=== PATIENT | female | born 1980 | race Caucasian/White ===

== ENCOUNTER 2016-04-14 13:01 | Inpatient (IN) | payer OTHER ==
[2016-04-14 13:32] LABS: % IMMATURE GRANULYOCYTES 0.3 % (0.0-1.1); ABSOLUTE IMMATURE GRANULOCYTES 0.03 10^3/uL (0.00-0.10); ADD DIFF? NO; ADD MORPH? NO; ADD SCAN? NO; ATYPICAL LYMPHOCYTE FLAG 0 (0-99); FRAGMENT RBC FLAG 0 (0-99); HEMATOCRIT 44.6 % (38.0-47.0); HEMOGLOBIN 15.6 g/dL (12.6-16.3); LEFT SHIFT FLG 0 (0-99); LIPEMIA HEMOLYSIS FLAG 90 (0-99); MEAN CELL HEMOGLOBIN 33.2 pg (27.9-34.1); MEAN CELL VOLUME 94.9 fL (81.5-99.8); MEAN PLATELET VOLUME 10.8 fL (8.7-11.7); PLATELET CLUMPS FLAG 10 (0-99); PLATELET COUNT 210 10^3/uL (150-400); RED CELL DISTRIBUTION WIDTH 12.5 % (11.5-15.2)
--- NOTE | 2016-04-14 13:43 | EDPHY ---
H & P Stated Complaint: M1 HOLD, DELUSIONAL - Personal History LMP (Females 10-55): 1-7 Days Ago Current Tetanus Diphtheria and Acellular Pertussis (TDAP): Yes Tetanus Vaccine Date: < 10 YEARS - Medical/Surgical History Hx Asthma: No Hx Chronic Respiratory Disease: No Hx Diabetes: No Hx Cardiac Disease: No Hx Renal Disease: No Hx Cirrhosis: No Hx Alcoholism: No Hx HIV/AIDS: No Hx Splenectomy or Spleen Trauma: No Other PMH: migraines - Social History Smoking Status: Former smoker Time Seen by Provider: 04/14/16 13:12 HPI/ROS: Chief complaint: Bipolar and jeanne HPI: 35-year-old woman with a history of bipolar 2 disorder and schizoaffective disorder who is being brought in for evaluation. Patient has been off her medications. She has had [address] [place] [address] in the last year. She is noncompliant with her therapist or her psychiatrist. She is currently pending eviction from her apartment. She gets Invega every 3 weeks and is supposed to be taking Zyprexa 20-30 mg a day and Trileptal 900 mg but has not been taking either Zyprexa or tried up. Patient is of manic and delusional. She believes that she is currently also believes that she is a mounted police officer. Her mother fluid town from dialysis to check on her and found her in this state. Patient is currently not cooperative with examination refusing to take any medications. She does not have any other past medical history. She was diagnosed with bipolar disorder at age 20. Has been in and out of treatments since that time. ROS: 10 point Review of Systems is negative except as noted in the HPI. Past medical history: Bipolar disorder type 2 Schizoaffective disorder Medications: Invega q 3 weeks Zyprexa 20-30 mg a day Trileptal 900 mg a day Allergies: No known drug allergies Physical exam: Gen: Awake, Alert, anxious, pressured speech HEENT: Nose: no rhinorrhea Eyes: PERRLA, EOMI Mouth: Moist mucosa Neck: Supple, no JVD Chest: nontender, lungs clear to auscultation Heart: S1, S2 normal, no murmur Abd: Soft, non-tender, no guarding Back: no CVA tenderness, no midline tenderness Ext: no edema, non-tender Skin: no rash Neuro: CN II-XII intact, Sensation grossly intact, Strength 5/5 in bilateral upper and lower extremities (Catracho Marie) Constitutional: Initial Vital Signs Temperature (C) 36.8 C 04/14/16 13:26 Heart Rate 101 H 04/14/16 13:26 Respiratory Rate 16 04/14/16 13:26 Blood Pressure 108/74 04/14/16 13:26 O2 Sat (%) 94 04/14/16 13:26 O2 Delivery Mode Room Air Allergies/Adverse Reactions: No Known Allergies Allergy (Verified 04/14/16 13:29) Home Medications: Medication Instructions Recorded OLANZapine DISINTEGR [ZyPREXA 20 mg PO HS 12/27/15 ZYDIS (*)] OXcarbazepine [Trileptal 300mg (*)] 900 mg PO HS 12/27/15 Paliperidone Palmitate [Invega 234 mg IM ONCE 12/27/15 Sustenna (*)] Medical Decision Making ED Course/Re-evaluation: Patient has been placed on a mental health hold by her mental health team prior to presentation emergency department. Patient has been medically cleared. Awaiting mental evaluation. 1748 patient has been accepted to [address] Macedo. EMTALA has been completed. 2100 Pt s/o to Dr Rossi pending transfer to . (Catracho Marie) Patient has remained stable in the 2 hours that I have cared for her. (Cj Rossi) Care Turn Over: Dr. Orantes at 11:00 p.m. (Cj Rossi) - Data Points Laboratory Results: Laboratory Results 04/14/16 13:20 04/14/16 13:20 04/14/16 04/14/16 04/14/16 13:20 13:20 13:20 WBC RBC Hgb Hct MCV MCH MCHC RDW Plt Count MPV Neut % (Auto) Lymph % (Auto) [place] % (Auto) Eos % (Auto) Baso % (Auto) Nucleat RBC Rel Count Absolute Neuts (auto) Absolute Lymphs (auto) Absolute Monos (auto) Absolute Eos (auto) Absolute Basos (auto) Absolute Nucleated RBC Immature Gran % Immature Gran # Sodium 136 mEq/L mEq/L (134-144) Potassium 3.9 mEq/L mEq/L (3.5-5.2) Chloride 105 mEq/L mEq/L (97-110) Carbon Dioxide 19 mEq/l L mEq/l (22-31) Anion Gap 12 mEq/L mEq/L (8-16) BUN 9 mg/dL mg/dL (7-23) Creatinine 0.8 mg/dL mg/dL (0.6-1.0) Estimated GFR > 60 Glucose 122 mg/dL H mg/dL (70-100) Calcium 9.5 mg/dL mg/dL (8.5-10.4) Beta HCG, Qual NEGATIVE Salicylates < 1.0 mg/dL L mg/dL (2.0-20.0) Urine Opiates Screen NEGATIVE (NEGATIVE) Acetaminophen < 10 mcg/mL L mcg/mL (10.0-30.0) Urine Barbiturates NEGATIVE (NEGATIVE) Ur Phencyclidine Scrn NEGATIVE (NEGATIVE) Ur Amphetamine Screen NEGATIVE (NEGATIVE) U Benzodiazepines Scrn NEGATIVE (NEGATIVE) Urine Cocaine Screen NEGATIVE (NEGATIVE) U Marijuana (THC) Screen NEGATIVE (NEGATIVE) Ethyl Alcohol < 10 mg/dL mg/dL (0-10) 04/14/16 13:20 WBC 9.91 10^3/uL H 10^3/uL (3.80-9.50) RBC 4.70 10^6/uL 10^6/uL (4.18-5.33) Hgb 15.6 g/dL g/dL (12.6-16.3) Hct 44.6 % % (38.0-47.0) MCV 94.9 fL fL (81.5-99.8) MCH 33.2 pg pg (27.9-34.1) MCHC 35.0 g/dL g/dL (32.4-36.7) RDW 12.5 % % (11.5-15.2) Plt Count 210 10^3/uL 10^3/uL (150-400) MPV 10.8 fL fL (8.7-11.7) Neut % (Auto) 77.0 % H % (39.3-74.2) Lymph % (Auto) 16.8 % % (15.0-45.0) [place] % (Auto) 4.6 % % (4.5-13.0) Eos % (Auto) 0.7 % % (0.6-7.6) Baso % (Auto) 0.6 % % (0.3-1.7) Nucleat RBC Rel Count 0.0 % % (0.0-0.2) Absolute Neuts (auto) 7.63 10^3/uL H 10^3/uL (1.70-6.50) Absolute Lymphs (auto) 1.66 10^3/uL 10^3/uL (1.00-3.00) Absolute Monos (auto) 0.46 10^3/uL 10^3/uL (0.30-0.80) Absolute Eos (auto) 0.07 10^3/uL 10^3/uL (0.03-0.40) Absolute Basos (auto) 0.06 10^3/uL 10^3/uL (0.02-0.10) Absolute Nucleated RBC 0.00 10^3/uL 10^3/uL (0-0.01) Immature Gran % 0.3 % % (0.0-1.1) Immature Gran # 0.03 10^3/uL 10^3/uL (0.00-0.10) Sodium Potassium Chloride Carbon Dioxide Anion Gap BUN Creatinine Estimated GFR Glucose Calcium Beta HCG, Qual Salicylates Urine Opiates Screen Acetaminophen Urine Barbiturates Ur Phencyclidine Scrn Ur Amphetamine Screen U Benzodiazepines Scrn Urine Cocaine Screen U Marijuana (THC) Screen Ethyl Alcohol Medications Given: Discontinued Medications Lorazepam (Ativan Injection) 1 mg IM EDNOW ONE Stop: 04/14/16 14:09 Last Admin: 04/14/16 14:18 Dose: 1 mg Nicotine Polacrilex (Nicorette) 2 mg B EDNOW ONE Stop: 04/14/16 14:06 Last Admin: 04/14/16 14:22 Dose: 2 mg Olanzapine (Zyprexa Im Injection) 10 mg IM EDNOW ONE Stop: 04/14/16 14:06 Last Admin: 04/14/16 14:17 Dose: 10 mg Departure - Departure Disposition: [facility] IP Clinical Impression: Bipolar disorder, Gravely disabled, Schizoaffective disorder, Delusional disorder Condition: Fair Referrals: Patient,NotPresent [Unknown] - As per Instructions
[2016-04-14 13:51] LABS: ANION GAP 12 mEq/L (8-16); CALCIUM 9.5 mg/dL (8.5-10.4); CARBON DIOXIDE 19 mEq/l (22-31); CHLORIDE 105 mEq/L (97-110); CREATININE 0.8 mg/dL (0.6-1.0); ETHANOL SERUM < 10 mg/dL (0-10); GLOMERULAR FILTRATION RATE > 60; GLUCOSE 122 mg/dL (70-100); POTASSIUM 3.9 mEq/L (3.5-5.2); SALICYLATE < 1.0 mg/dL (2.0-20.0); SODIUM 136 mEq/L (134-144)
[2016-04-14] MEDS ORDERED: OLANZapine 10 MG/2 ML VIAL IM ONE (14:05)
[2016-04-14] MEDS ORDERED: NICOTINE POLACRILEX 2 MG GUM B ONE (14:05)
[2016-04-14] MEDS ORDERED: LORazepam 2 MG/ML INJ IM ONE (14:08)
[2016-04-14] MEDS ORDERED: OLANZapine 2.5 MG TAB PO SCH (21:00)
[2016-04-14] MEDS ORDERED: OXcarbazepine 300 MG TAB PO SCH (21:00)
[2016-04-14] MEDS ORDERED: OXcarbazepine 300 MG TAB PO ONE (23:30)
[2016-04-14] MEDS ORDERED: OLANZapine DISINTEGR 10 MG TAB PO ONE (23:30)
[2016-04-15] MEDS ORDERED: ACETAMINOPHEN 325 MG TAB PO PRN (09:23)
[2016-04-15] MEDS ORDERED: MAGNESIUM HYDROXIDE 30 ML UDCUP PO PRN (09:23)
[2016-04-15] MEDS ORDERED: MAG HYDROX/AL HYDROX/SIMETH 30 ML UDCUP PO PRN (09:23)
[2016-04-15] MEDS ORDERED: LORazepam 0.5 MG TAB PO PRN (09:23)
[2016-04-15 10:03] VITALS: RESP 12; TEMP 97.8
[2016-04-15] MEDS ORDERED: PALIPERIDONE PALMITATE 234 MG/1.5 ML SYR IM ONE (10:35)
[2016-04-15] MEDS: NICOTINE POLACRILEX 2 MG GUM B PRN ×2 (11:52→12:45)
--- NOTE | 2016-04-15 12:22 | BAPA ---
DATE OF SERVICE: 04/15/2016 CHIEF COMPLAINT: "My mother is retazy. I have been doing great." HISTORY OF PRESENT ILLNESS: The patient is a 35-year-old single female known to this MD from multiple previous 3 [place] admissions, with a history of schizoaffective disorder, who was brought to the [facility] ED for an evaluation on 04/14/2016 at 1340. The patient has reportedly been off her medications and has been noncompliant with her appointments with her psychiatrist or therapist at [facility] where she gets her psych treatment. She has a visiting nurse who gives pt her Invega sustana injections. She has had [address] [place] [address] in the past year. She has pending eviction from her apartment due to her behavior. She was supposed to get Invega 234 mg every 3 weeks and is supposed to be taking Zyprexa and Trileptal, but has not been taking any, and may have missed her injection. The patient appeared in the ER manic and delusional. She believes she is currently , believes she is a secretary of police, and that she is . Her mother flew into [facility] (she is on dialysis) to check on her and found her decompensated. The patient has had a history of bipolar disorder since age 20. The patient knows this MD, so was cooperative with questions but is a poor historian and is delusional. However, in the ED refused to communicate with a [facility] cardiac monitor. Patient's mother reports she has been off her medications for several weeks and has been increasingly paranoid and fearful. The patient is a [facility] patient. Her M1 hold states, "Patient harassing neighbors and making disruptive noises to the point of eviction, process being initiated, patient driving recklessly, breaking traffic lower airways, endangering people and herself, patient refusing to take her meds and refusing to see her counselor and psychiatrist, the patient's hygiene and nutrition are poor, the patient has been making threatening and offensive calls and texts to family, treatment team and police." The patient's mother states patient is manic and decompensating. The patient has not been sleeping or eating well. Has not slept in a week. Also has a poor diet, consuming lots of sugar and caffeine. Her therapist said she eats out a lot and the healthiest thing she consumes is [employer]. PSYCHIATRIC HISTORY: The patient was hospitalized psych at [facility] from 11/04/2015 to 11/16/2015, and most recently 12/26/2015 to 01/24/2016. The patient has been hospitalized 7 times in [place], [place]. The patient's previous psychiatrist , Dr. James Flores, last year. She has a new psychiatrist, Dr. Goodwin, but has been refusing to keep her appointments. She is scheduled for an Invega injection every 3 weeks, but may have missed her last shot. Previous suicide attempt on November 04, 2015: The patient overdosed on her medication and was in the ICU for 2 days. No history of violence. Supposed to be taking Invega Sustenna 234 mg IM q.3 weeks, Zyprexa 20 mg daily, and Trileptal. According to previous [facility] records, the patient is has frequent delusions, even when she is stable. She also believes she is , is a secretary of police, and has delusions about previous relationships with past connections such as the [facility] who she actually socialized with in the past, and also about having high-profile boyfriends. She also often thinks she is dating or to a photocopying machine operator, FBI agent, etc. PAST MEDICAL HISTORY: None reported. ALLERGIES: None. SUBSTANCE ABUSE: Denies any substance abuse. BAL was 0. U tox was negative. According to [facility] record, the patient does not drink or use drugs. 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 She smokes a pack a day of cigarettes. SOCIAL HISTORY: The patient's parents are . Mother lives in [place]. The patient's father lives in [place], [place]. Sister resides in [place]. Patient grew up in [place], and attended boarding school in [place]. The patient was very intelligent and comes from an affluent family. 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 No physical or sexual abuse growing up. She is single. No children. Lives alone in apartment in [place]. May be evicted. No close friends. The patient has been unable to work for many years. She enjoys tennis, art, and swimming. MENTAL STATUS: Patient is alert and oriented x4. Mood is labile, elated. Affect is broad. Patient denies auditory or visual hallucinations. She is delusional. She states things "are great" She states she is and recently got in [place]. She states the reason she is here is all because of her "mother is crazy". Speech is pressured and loud. Thoughts are illogical with grandiose delusions . Sleep, appetite have been poor. Energy level is high. Positive symptoms of jeanne. Patient denies suicidal or homicidal ideation. Insight and judgment are poor. IMPRESSION: Schizoaffective disorder, acute decompensation, secondary to noncompliance with medications. [place] V on admission is 20. PLAN: Will order Invega Sustenna 234 mg to give 1 time after we check to see when her last dose was actually administered. Patient agrees to this. Ativan p.r.n., Zyprexa p.r.n. 20 mg q.h.s., Trileptal 900 mg q.h.s. The patient is currently on an M1 and will require a cert when M1 expires, as she has no insight. The patient is appropriate for psychiatric hospitalization at this time. The patient will see the direct care counselor and the hospitalist today. /[id number]/MODL MTDD
--- NOTE | 2016-04-15 14:27 | BCON ---
INTERNAL MEDICINE CONSULTATION. DATE OF CONSULTATION: 04/15/2016 REASON FOR REFERRAL: Medical clearance for inpatient behavioral health stay. HISTORY OF PRESENT ILLNESS: The patient came to the emergency department with manic behavior, brought in for evaluation. She had been noncompliant with her psychiatric medications, and had not followed up with her therapist or her psychiatrist. She was evaluated by the mental health team and admitted for further psychiatric care. She currently reports "no problems", and reports that she has her own doctor and does not need to see this examiner today. PAST MEDICAL HISTORY: 1. Psychiatric issues with diagnoses in the chart of schizoaffective disorder and bipolar disorder. 2. History of suicide attempt with overdose on psychiatric medications. 3. Migraines. PAST SURGICAL HISTORY: Unobtainable. MEDICATIONS: She was prescribed: 1. Paliperidone injection, 234 mg IM every 3 weeks. 2. Oxcarbazepine 900 mg p.o. at bedtime. 3. Olanzapine 20 mg p.o. at bedtime. ALLERGIES: There are no known drug allergies. SOCIAL HISTORY: She lives alone in an apartment. She has been a [employer] client. 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 She smokes 1 pack of cigarettes a day. FAMILY HISTORY: Noncontributory. REVIEW OF SYSTEMS: Unobtainable. PHYSICAL EXAM: Physical exam is limited due to noncooperation. VITAL SIGNS: This morning, blood pressure was 110/58, heart rate was 94, respiratory rate was 12, oxygen saturation was 92% on room air, temperature was 36.6 degrees. Weight was 68.5 kg for a body mass index of 21.1. GENERAL: This is a well- nourished, well-developed woman who appears her chronologic age, in a green suicide smock wearing a knit cap pulled over her head, rocking in a rocking chair and in no acute distress. HEENT: Appears atraumatic and normocephalic. Extraocular movements, to the extent they can be examined, are intact. Dentition appears to be in good condition. NECK: Supple. CARDIOVASCULAR: Exam could not be accomplished. PULMONARY: She is not tachypneic and is not using accessory muscles of respiration, and is not coughing. ABDOMEN: Abdominal exam could not be accomplished. EXTREMITIES: There appears to be no cyanosis or clubbing. NEUROLOGIC: She is alert, she moves all extremities, and further exam could not be accomplished. LABORATORY DATA: Laboratory studies drawn in the emergency department: CBC revealed an elevated white blood cell count at 9.9, with a predominance of neutrophils at 7.63, but no left shift. CBC was otherwise within normal limits. Serum chemistry reveals a slightly low CO2 at 19, an elevated glucose at 122, but this was likely not fasting, and otherwise renal function and electrolytes were within normal limits. Beta HCG was negative for . Toxicology screen, the serum was negative for salicylates, acetaminophen or ethyl alcohol, and the urine was negative for any substances of abuse. ASSESSMENT/RECOMMENDATIONS: 1. Mental health issues. Pending further evaluation and management per Psychiatry and the mental health system team. 2. Medical noncompliance, unclear what can be done to encourage her to remain on her psychiatric medications. 3. Tobacco dependence syndrome. I see no medical contraindications to the patient's continued stay on the inpatient behavioral health unit, or to any psychiatric medications or procedures. Thank you very much for including me in the care of this patient, and please do not hesitate to contact me or the hospitalist service should there be need for further medical evaluation. /[id number]/MODL MTDD
[2016-04-15] MEDS: OXcarbazepine 300 MG TAB PO SCH (21:06)
[2016-04-15] MEDS: OLANZapine DISINTEGR 10 MG TAB PO SCH (21:06)
[2016-04-16] MEDS: NICOTINE POLACRILEX 2 MG GUM B PRN ×5 (07:48→18:01)
[2016-04-16] MEDS: OXcarbazepine 300 MG TAB PO SCH (18:59)
[2016-04-16] MEDS: OLANZapine DISINTEGR 10 MG TAB PO SCH (18:59)
[2016-04-17] MEDS: NICOTINE POLACRILEX 2 MG GUM B PRN ×3 (07:00→16:57)
--- NOTE | 2016-04-17 13:39 | BAPA ---
DATE OF SERVICE: 04/17/2016 CHIEF COMPLAINT: "I'm too busy right now. I do not want to talk to you." HISTORY OF PRESENT ILLNESS: Patient is a 35-year-old, female with a history of schizoaffe ctive disorder bipolar type, who is well known to us from previous admissions. She was here from to 01/24/16 under my care due to medication noncompliance and decompensation with manic and p sychotic symptoms. During that hospitalization we had a very difficult time stabilizing her, but ul timately we were able to discharge her on a combination of Trileptal, Zyprexa and Invega Sustenna. She was to follow up with Dr. Trae Esparza as an outpatient, which she did eventually on at least 1 occasion. She then refused to come back, and at some point, changed to seeing Dr. Sal Goodwin. She was continued on at least the Zyprexa and Invega, and is unclear when she had her last Invega Leung stenna shot. One report was she had it on the 04 of March and then missed her March shot, an d another report was that she did indeed receive the shot in March on the . The patient is un willing to give me any history as I have attempted to interview her at least 10 times in the past 2 days. She states each time that she is too busy to talk or that she does not want to talk or that s he is too tired to talk. This is a familiar pattern from the past as it takes several days before s he will typically give me any useful information. Other collateral information indicates that she w as brought to the hospital due to recurrent manic and psychotic behaviors. She apparently had been disturbing her neighbors and driving recklessly. She was, again, not attending to her nutrition or hygiene needs. Also, as in the past, she began making threatening and offensive calls and texts to her family and her treatment team. She made no threats of suicide, though has in the past. She was brought to the emergency department where she was evaluated by ER and [facility] staff, placed on an M1 ho ld and admitted for further evaluation. PAST PSYCHIATRIC HISTORY: Significant for numerous previous psychiatric hospitalizations. As mentkuldip rodriguezd above, she was at this facility from 12/26/15 to 01/24/16. Is currently seeing Dr. Jesus gray for medication management and Ellis for community support and therapy. ALLERGIES: No known medical allergies. CURRENT MEDICATIONS: Zyprexa 20 mg h.s., Invega Sustenna 234 mg every 4 weeks, Trileptal 900 mg h.s . PAST MEDICAL HISTORY: Noncontributory. SOCIAL HISTORY: Patient is originally from the [facility]. She has lived in [place] for severa l years. Her sister also lives in [place] and has been a support for her, though they have a confli ctual relationship due to patient's recurrent severe illness. Patient's mother lives in [place] and is her primary support. She has a similar complex relationship with her mother when she becomes mor e delusional and accuses her family of acting against her and being jealous of her. She receives di sability income due to her mental illness. FAMILY HISTORY: Unremarkable. ADMITTING LABORATORY: CBC shows a white count up at 9.91 with neutrophil percentage of 77, which is also elevated. Serum chemistries showed no significant abnormalities. Beta hCG is negative. A ur ine drug screen is negative for all substances. MENTAL STATUS EXAMINATION: Reveals a disheveled female, sitting in a rocking chair in the day room. She is talking in a pressured and loud manner to no one in particular and giving a runni ng commentary about activities on the unit and the television. She immediately sees me and will squ eal or yell and wave at me, but then immediately begins to refuse to talk to me. She is smiling and pleasant and is not irritable or hostile, but refuses to participate in a clinical interview or nir n a conversation. Her affect is elevated, labile. Her mood is described as "great." Thought proce ss is tangential. Her thought content reveals paranoid and grandiose delusions, as are familiar fro m the past about being a navy senior officer and having various husbands. I am unable to test her orient ation, although she is alert and interactive. She does not mention any thoughts of suicide, homicid e or violence to me, though she refuses to answer this or any other questions. Her insight and judg ment are very poor. IMPRESSION: Schizoaffective disorder, chronic, with acute exacerbation, bipolar type; chronic illne ss, family conflicts, medication noncompliance, recurrent illness, recurrent hospitalization, possib le housing problems. The patient is a 35-year-old, female with severe bipolar type schizoaffective disorder. S he has been chronically noncompliant. This recurrence of hospitalization now is exactly scripted fr om her last several. It is very difficult to imagine higher level of community support then she is having currently, and she simply does poorly in the outpatient setting. We will attempt to re-stabi lize her on her medications as they have been reasonably effective in the past, though this typicall y takes several weeks. Also coordinate with Dr. Goodwin and Ellis, and hope to see an ongoing effo rt to create a reasonable and safe outpatient plan. ESTIMATED LENGTH OF STAY: 14 days. /[id number]/MODL
[2016-04-17] MEDS: OLANZapine DISINTEGR 10 MG TAB PO SCH (20:01)
[2016-04-17] MEDS: OXcarbazepine 300 MG TAB PO SCH (20:40)
[2016-04-18] MEDS: NICOTINE POLACRILEX 2 MG GUM B PRN ×4 (06:27→17:13)
--- NOTE | 2016-04-18 22:22 | SOAPPROG ---
SOAP Progress Note Assessment/Plan: Assessment: Plan: Subjective: P Pt seen, discussed with staff. Continues to refuse meds. I discussed with her very directly that she needs to take all of her prescribed medications. She agrees to take the Zyprexa and Trileptal. I left message for pt's mother re: meds, treatment plan, etc. Objective: Vital Signs Temp Pulse Resp BP Pulse Ox 36.6 C 94 12 110/58 L 92 04/15/16 10:02 04/15/16 10:02 04/15/16 10:02 04/15/16 10:02 04/15/16 10:02 MSE: Agitated, hyperverbal. Affect is expansive. Mood is "great." TP tangential. TC reveals paranoid, grandiose delusions. Denies SI. - Time Spent With Patient Time Spent With Patient: 25" - Pending Discharge Pending Discharge Within 24 Hours: No Pending Discharge Within 48 Hours: No ICD10 Worksheet Patient Problems: Problems Problem Status Onset Bipolar disorder Acute Delusional disorder Acute Gravely disabled Acute Schizoaffective disorder Acute Acute psychosis Acute Altered mental status Acute Overdose Acute
[2016-04-18] MEDS: OLANZapine DISINTEGR 10 MG TAB PO SCH (22:23)
[2016-04-18] MEDS: OXcarbazepine 300 MG TAB PO SCH (22:24)
[2016-04-19] MEDS: NICOTINE POLACRILEX 2 MG GUM B PRN ×5 (06:29→15:47)
[2016-04-19] MEDS: IBUPROFEN 600 MG TAB PO PRN (13:32)
[2016-04-19] MEDS: OXcarbazepine 300 MG TAB PO SCH (20:53)
[2016-04-19] MEDS: OLANZapine DISINTEGR 10 MG TAB PO SCH (20:54)
--- NOTE | 2016-04-19 22:58 | SOAPPROG ---
SOAP Progress Note Assessment/Plan: Assessment: Plan: 04/19/16 22:58 Remains manic and psychotic. Need COM if she is to stabilize.. Subjective: Pt seen, discussed with staff. Reports feeling "great." States her psychiatrist and the governor of [place] don't want her to take any pills "just the injectable." Agitated and pacing, unable to interact appropriately with others. Talking to unseen persons in running conversation. ADL's and grooming remain poor. Objective: Vital Signs Temp Pulse Resp BP Pulse Ox 36.6 C 94 12 110/58 L 92 04/15/16 10:02 04/15/16 10:02 04/15/16 10:02 04/15/16 10:02 04/15/16 10:02 MSE: Agitated, pressured. Affect is elevated. Mood is "great." TP tangential , disorganized. TC reveals grandiose and paranoid delusions. - Time Spent With Patient Time Spent With Patient: 15" - Pending Discharge Pending Discharge Within 24 Hours: No Pending Discharge Within 48 Hours: No ICD10 Worksheet Patient Problems: Problems Problem Status Onset Bipolar disorder Acute Delusional disorder Acute Gravely disabled Acute Schizoaffective disorder Acute Acute psychosis Acute Altered mental status Acute Overdose Acute
[2016-04-20] MEDS: NICOTINE POLACRILEX 2 MG GUM B PRN ×8 (06:16→20:40)
[2016-04-20] MEDS ORDERED: PALIPERIDONE PALMITATE 234 MG/1.5 ML SYR IM ONE (13:50)
--- NOTE | 2016-04-20 18:58 | SOAPPROG ---
SOAP Progress Note Assessment/Plan: Assessment: Plan: 04/19/16 22:58 Remains manic and psychotic. Need COM if she is to stabilize.. 04/20/16 18:57 REmains manic. Needs additional PO meds. Will petition court. Subjective: Pt seen, discussed with staff. Remains elevated, intrusive, loud, delusional. Refuses PO meds "because my psychiatrist in [facility] told me they frederic bad for me. " Requests Invega Sustenna. Objective: Vital Signs Temp Pulse Resp BP Pulse Ox 36.6 C 94 12 110/58 L 92 04/15/16 10:02 04/15/16 10:02 04/15/16 10:02 04/15/16 10:02 04/15/16 10:02 MSE: Moderately agitated, uncoop. AFfect is elevated. Mood is "great." TP tangential. TC reveals ongoing erotomanic, grandiose and paranoid delusions. I/ J are very poor. - Time Spent With Patient Time Spent With Patient: 15" - Pending Discharge Pending Discharge Within 24 Hours: No Pending Discharge Within 48 Hours: No ICD10 Worksheet Patient Problems: Problems Problem Status Onset Bipolar disorder Acute Delusional disorder Acute Gravely disabled Acute Schizoaffective disorder Acute Acute psychosis Acute Altered mental status Acute Overdose Acute
[2016-04-20] MEDS: OLANZapine DISINTEGR 10 MG TAB PO SCH (20:42)
[2016-04-20] MEDS: OXcarbazepine 300 MG TAB PO SCH (20:43)
[2016-04-21] MEDS: NICOTINE POLACRILEX 2 MG GUM B PRN ×3 (07:55→12:31)
[2016-04-21] MEDS: IBUPROFEN 600 MG TAB PO PRN (15:23)
--- NOTE | 2016-04-21 17:35 | SOAPPROG ---
SOAP Progress Note Assessment/Plan: Assessment: Plan: 04/19/16 22:58 Remains manic and psychotic. Need COM if she is to stabilize.. 04/20/16 18:57 REmains manic. Needs additional PO meds. Will petition court. 04/21/16 17:34 Improving but history indicates she will not improve adequate to provide for safe d/c without PO meds. Will [facility], petition for involuntary meds. Subjective: Pt seen, discussed with staff. Reports feeling "just great." Remains elevated , impulsive, intrusive with continued inapprop. comments to staff and fellow patients. She continues to refuse PO meds but did take the Sustenna. Objective: Vital Signs Temp Pulse Resp BP Pulse Ox 36.6 C 94 12 110/58 L 92 04/15/16 10:02 04/15/16 10:02 04/15/16 10:02 04/15/16 10:02 04/15/16 10:02 - Time Spent With Patient Time Spent With Patient: 15" - Pending Discharge Pending Discharge Within 24 Hours: No Pending Discharge Within 48 Hours: No ICD10 Worksheet Patient Problems: Problems Problem Status Onset Bipolar disorder Acute Delusional disorder Acute Gravely disabled Acute Schizoaffective disorder Acute Acute psychosis Acute Altered mental status Acute Overdose Acute
[2016-04-21] MEDS: OLANZapine DISINTEGR 10 MG TAB PO SCH (20:22)
[2016-04-21] MEDS: OXcarbazepine 300 MG TAB PO SCH (20:22)
[2016-04-22] MEDS: NICOTINE POLACRILEX 2 MG GUM B PRN ×5 (07:13→13:49)
[2016-04-22] MEDS: OLANZapine DISINTEGR 10 MG TAB PO SCH (21:34)
[2016-04-22] MEDS: OXcarbazepine 300 MG TAB PO SCH (21:35)
--- NOTE | 2016-04-23 08:00 | SOAPPROG ---
SOAP Progress Note Assessment/Plan: Assessment: Plan: 04/19/16 22:58 Remains manic and psychotic. Need COM if she is to stabilize.. 04/20/16 18:57 REmains manic. Needs additional PO meds. Will petition court. 04/21/16 17:34 Improving but history indicates she will not improve adequate to provide for safe d/c without PO meds. Will [facility], petition for involuntary meds. 04/23/16 07:59 Remains elevated, though coop. Will [facility]. Subjective: Pt seen, discussed with staff. She reports being happy about stay in the hospital and wants to stay for "at least a month or two." States she wants to take meds and be compliant. Continues to refuse HS PO meds, however. She states she will think about it. Remains elevated, intrusive, accelerated, delusional, but no behavioral issues. Objective: Vital Signs Temp Pulse Resp BP Pulse Ox 36.6 C 94 12 110/58 L 92 04/15/16 10:02 04/15/16 10:02 04/15/16 10:02 04/15/16 10:02 04/15/16 10:02 MSE: Moderately activated, coop. Affect is elevated. Mood is "great." TP tangential. TC reveals grandiose, erotomanic and paranoid delusions. - Time Spent With Patient Time Spent With Patient: 25" - Pending Discharge Pending Discharge Within 24 Hours: No Pending Discharge Within 48 Hours: No ICD10 Worksheet Patient Problems: Problems Problem Status Onset Bipolar disorder Acute Delusional disorder Acute Gravely disabled Acute Schizoaffective disorder Acute Acute psychosis Acute Altered mental status Acute Overdose Acute
[2016-04-23] MEDS: NICOTINE POLACRILEX 2 MG GUM B PRN ×3 (15:14→18:00)
--- NOTE | 2016-04-23 16:02 | SOAPPROG ---
SOAP Progress Note Assessment/Plan: Assessment: Plan: 04/19/16 22:58 Remains manic and psychotic. Need COM if she is to stabilize.. 04/20/16 18:57 REmains manic. Needs additional PO meds. Will petition court. 04/21/16 17:34 Improving but history indicates she will not improve adequate to provide for safe d/c without PO meds. Will [facility], petition for involuntary meds. 04/23/16 07:59 Remains elevated, though coop. Will [facility]. 04/23/16 16:02 More irritable today. She continues to resist PO meds but is happy to accept IM. Will discuss with Dr. Goodwin the utility in seeking an order for PO meds as she is correct that we cannot give them to her against her will. Although Zyprexa is available in a long-acting injectable, I will not give it with Sustenna due to safety concerns. Subjective: Pt seen, discussed with staff. Friendly at first until I discussed the need for her to take PO meds. She remains adamantly against this. She states, " Even if you get a court order, you can't make me take the pills." Remains intermittently agitated, usually in regards to delusional themes. Objective: Vital Signs Temp Pulse Resp BP Pulse Ox 36.6 C 94 12 110/58 L 92 04/15/16 10:02 04/15/16 10:02 04/15/16 10:02 04/15/16 10:02 04/15/16 10:02 MSE: Generally calm, coop. Affect is expansive. Mood is "good." TP linear, though frequently diverts to delusional systems. TC reveals ongoing paranoid, grandiose and erotomanic delusions. - Time Spent With Patient Time Spent With Patient: 15" - Pending Discharge Pending Discharge Within 24 Hours: No Pending Discharge Within 48 Hours: No ICD10 Worksheet Patient Problems: Problems Problem Status Onset Bipolar disorder Acute Delusional disorder Acute Gravely disabled Acute Schizoaffective disorder Acute Acute psychosis Acute Altered mental status Acute Overdose Acute
[2016-04-23] MEDS: OLANZapine DISINTEGR 10 MG TAB PO SCH (21:10)
[2016-04-23] MEDS: OXcarbazepine 300 MG TAB PO SCH (21:10)
[2016-04-24] MEDS: NICOTINE POLACRILEX 2 MG GUM B PRN ×10 (09:16→18:27)
[2016-04-24] MEDS: OXcarbazepine 300 MG TAB PO SCH (21:02)
[2016-04-24] MEDS: OLANZapine DISINTEGR 10 MG TAB PO SCH (21:02)
--- NOTE | 2016-04-24 22:29 | SOAPPROG ---
SOAP Progress Note Assessment/Plan: Assessment: Plan: 04/19/16 22:58 Remains manic and psychotic. Need COM if she is to stabilize.. 04/20/16 18:57 REmains manic. Needs additional PO meds. Will petition court. 04/21/16 17:34 Improving but history indicates she will not improve adequate to provide for safe d/c without PO meds. Will [facility], petition for involuntary meds. 04/23/16 07:59 Remains elevated, though coop. Will [facility]. 04/23/16 16:02 More irritable today. She continues to resist PO meds but is happy to accept IM. Will discuss with Dr. Goodwin the utility in seeking an order for PO meds as she is correct that we cannot give them to her against her will. Although Zyprexa is available in a long-acting injectable, I will not give it with Sustenna due to safety concerns. 04/24/16 22:30 CCM. Subjective: Pt seen, discussed with staff. Reports feeling "really good." Continues to act upon delusuonal systems/beliefs. She is in reasonable behavioral control. Objective: Vital Signs Temp Pulse Resp BP Pulse Ox 36.6 C 94 12 110/58 L 92 04/15/16 10:02 04/15/16 10:02 04/15/16 10:02 04/15/16 10:02 04/15/16 10:02 MSE: Calm, coop. Affect is expansive. Mood is "good." TP tangential at times , TC reveals familiar paranoid, grandiose and erotomanic delusions. - Time Spent With Patient Time Spent With Patient: 15" ICD10 Worksheet Patient Problems: Problems Problem Status Onset Bipolar disorder Acute Delusional disorder Acute Gravely disabled Acute Schizoaffective disorder Acute Acute psychosis Acute Altered mental status Acute Overdose Acute
[2016-04-25] MEDS: IBUPROFEN 600 MG TAB PO PRN (09:49)
[2016-04-25] MEDS: NICOTINE POLACRILEX 2 MG GUM B PRN ×4 (09:49→14:05)
[2016-04-25] MEDS: OLANZapine DISINTEGR 10 MG TAB PO SCH (20:41)
[2016-04-25] MEDS: OXcarbazepine 300 MG TAB PO SCH (20:41)
--- NOTE | 2016-04-25 23:19 | SOAPPROG ---
SOAP Progress Note Assessment/Plan: Assessment: 35yo CF admitted again in manic state with delusions in context of med noncompliance 04/25/16 16:17 per staff, slept 10hr. 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 Also delusional about just getting , and loose assoc noted with her feeling the "elopement" risk sign on door relates to her marriage. Loud in milieu, manic, with delusions. "I'm not talking to you" and refused interview. casually dressed, nml rate speech, nml to loud vol; "I'm fine" mood, somewhat labile affect but more controlled than in past. nml psychom activity, no reported SI per staff. did not appear responding to int stim. Plan: continue IM meds. refuses any PO med options Objective: Vital Signs Temp Pulse Resp BP Pulse Ox 36.6 C 94 12 110/58 L 92 04/15/16 10:02 04/15/16 10:02 04/15/16 10:02 04/15/16 10:02 04/15/16 10:02 - Time Spent With Patient Time Spent With Patient: <10min - Pending Discharge Pending Discharge Within 24 Hours: No Pending Discharge Within 48 Hours: No ICD10 Worksheet Patient Problems: Problems Problem Status Onset Bipolar disorder Acute Delusional disorder Acute Gravely disabled Acute Schizoaffective disorder Acute Acute psychosis Acute Altered mental status Acute Overdose Acute
[2016-04-26] MEDS: NICOTINE POLACRILEX 2 MG GUM B PRN ×4 (09:36→14:00)
[2016-04-26] MEDS: OXcarbazepine 300 MG TAB PO SCH (19:45)
[2016-04-26] MEDS: OLANZapine DISINTEGR 10 MG TAB PO SCH (19:45)
--- NOTE | 2016-04-26 22:51 | SOAPPROG ---
SOAP Progress Note Assessment/Plan: Assessment: 35yo CF admitted again in manic state with delusions in context of med noncompliance 04/25/16 16:17 per staff, slept 10hr. 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 Also delusional about just getting , and loose assoc noted with her feeling the "elopement" risk sign on door relates to her marriage. Loud in milieu, manic, with delusions. "I'm not talking to you" and refused interview. casually dressed, nml rate speech, nml to loud vol; "I'm fine" mood, somewhat labile affect but more controlled than in past. nml psychom activity, no reported SI per staff. did not appear responding to int stim. Plan: continue IM meds. refuses any PO med options 04/26/16 13:11 slept 9.5hr. 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 "Can I stay here for 6-8wks" b/c was evicted and this will be time needed to get a new place ready, "I have good insurance". MSE: cooperative, redirectible, nml psychom activity, articulate, talkative but not pressured. mood "fine," affect hypomanic, thoughts delusional, no SI/HI and did not appear responding to any int stim. i/j impaired. cognition conversationally intact PLAN: cont IM meds. refuses po meds of zyprexa and trileptal received Invega Sustenna 234mg IM on 04/20 Objective: Vital Signs Temp Pulse Resp BP Pulse Ox 36.6 C 94 12 110/58 L 92 04/15/16 10:02 04/15/16 10:02 04/15/16 10:02 04/15/16 10:02 04/15/16 10:02 Medications Generic Name Dose Route Start Last Admin Trade Name Freq PRN Reason Stop Dose Admin Lorazepam 0.5 - 1 mg 04/15/16 09:23 Ativan PO 10/12/16 09:22 Q6HRS PRN Anxiety, Able to Take PO Oxcarbazepine 900 mg 04/15/16 21:00 04/26/16 19:45 Trileptal PO 10/12/16 20:59 Not Given HS ANSON Olanzapine 20 mg 04/15/16 21:00 04/26/16 19:45 Zyprexa Zydis PO 10/12/16 20:59 Not Given HS ANSON Olanzapine 10 mg 04/15/16 09:23 Zyprexa Zydis PO 10/12/16 09:22 Q4H PRN Agitation, Psychosis - Pending Discharge Pending Discharge Within 24 Hours: No Pending Discharge Within 48 Hours: No ICD10 Worksheet Patient Problems: Problems Problem Status Onset Bipolar disorder Acute Delusional disorder Acute Gravely disabled Acute Schizoaffective disorder Acute Acute psychosis Acute Altered mental status Acute Overdose Acute
[2016-04-27] MEDS: NICOTINE POLACRILEX 2 MG GUM B PRN ×4 (07:55→17:20)
[2016-04-27] MEDS: OLANZapine DISINTEGR 10 MG TAB PO SCH (21:20)
[2016-04-27] MEDS: OXcarbazepine 300 MG TAB PO SCH (21:20)
--- NOTE | 2016-04-27 23:54 | SOAPPROG ---
SOAP Progress Note Assessment/Plan: Assessment: 35yo CF admitted again in manic state with delusions in context of med noncompliance 04/25/16 16:17 per staff, slept 10hr. 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 Also delusional about just getting , and loose assoc noted with her feeling the "elopement" risk sign on door relates to her marriage. Loud in milieu, manic, with delusions. "I'm not talking to you" and refused interview. casually dressed, nml rate speech, nml to loud vol; "I'm fine" mood, somewhat labile affect but more controlled than in past. nml psychom activity, no reported SI per staff. did not appear responding to int stim. Plan: continue IM meds. refuses any PO med options 04/26/16 13:11 slept 9.5hr. 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 "Can I stay here for 6-8wks" b/c was evicted and this will be time needed to get a new place ready, "I have good insurance". MSE: cooperative, redirectible, nml psychom activity, articulate, talkative but not pressured. mood "fine," affect hypomanic, thoughts delusional, no SI/HI and did not appear responding to any int stim. i/j impaired. cognition conversationally intact PLAN: cont IM meds. refuses po meds of zyprexa and trileptal received Invega Sustenna 234mg IM on 04/2004/27/16 12:40 slept 11hr has plan now to move to [place] on june 24 with her grandfather the "Fed [employer]" no other complaints or requests still wants no po meds but likes Invega. asks if 234mg is the highest dose. regular nicorette gum use. following unit rules well and is redirectable more easily. MSE: cooperative, good eye contact, nml speech rate/vol, mood "good" affect full , tp linear but +delusions, no si/ah PLAN: cont current meds. will only take IM last Invega Sustenna 04/20, taking q3 wk she reports considering [facility] after d/c Objective: Vital Signs Temp Pulse Resp BP Pulse Ox 36.6 C 94 12 110/58 L 92 04/15/16 10:02 04/15/16 10:02 04/15/16 10:02 04/15/16 10:02 04/15/16 10:02 - Time Spent With Patient Time Spent With Patient: 15min - Pending Discharge Pending Discharge Within 24 Hours: No Pending Discharge Within 48 Hours: No ICD10 Worksheet Patient Problems: Problems Problem Status Onset Bipolar disorder Acute Delusional disorder Acute Gravely disabled Acute Schizoaffective disorder Acute Acute psychosis Acute Altered mental status Acute Overdose Acute
[2016-04-28] MEDS: NICOTINE POLACRILEX 2 MG GUM B PRN ×6 (09:28→17:54)
--- NOTE | 2016-04-28 17:48 | SOAPPROG ---
SOAP Progress Note Assessment/Plan: Assessment: Plan: 04/19/16 22:58 Remains manic and psychotic. Need COM if she is to stabilize.. 04/20/16 18:57 REmains manic. Needs additional PO meds. Will petition court. 04/21/16 17:34 Improving but history indicates she will not improve adequate to provide for safe d/c without PO meds. Will [facility], petition for involuntary meds. 04/23/16 07:59 Remains elevated, though coop. Will [facility]. 04/23/16 16:02 More irritable today. She continues to resist PO meds but is happy to accept IM. Will discuss with Dr. Goodwin the utility in seeking an order for PO meds as she is correct that we cannot give them to her against her will. Although Zyprexa is available in a long-acting injectable, I will not give it with Sustenna due to safety concerns. 04/24/16 22:30 CCM. 04/28/16 17:48 Pt remains psychotic. Sleeping well, less irritable, less pressured. Her current symptomology is consistent with the thought disorder component of her illness. Will [facility]. Continue d/c planning. Will put our support behind [facility]. Subjective: Pt seen, discussed with staff, chart reviewed, case discussed with Dr. Macedo. She remains erratic, quite delusional today. She states she is getting to a police surgeon in June and that there will be 500,000 people at her wedding. She will get a pink convertible Volkswagen next week. Mother called and informed CC that she has gotten rid of 's apartment and car. Objective: Vital Signs Temp Pulse Resp BP Pulse Ox 36.6 C 94 12 110/58 L 92 04/15/16 10:02 04/15/16 10:02 04/15/16 10:02 04/15/16 10:02 04/15/16 10:02 MSE: Moderately agitated, coop. Affect is slightly elevated, generally stable. Mood is "great." TP tangential. TC reveals paranoid, grandiose and erotomanic delusions. Denies SI. - Time Spent With Patient Time Spent With Patient: 25" - Pending Discharge Pending Discharge Within 24 Hours: No Pending Discharge Within 48 Hours: No ICD10 Worksheet Patient Problems: Problems Problem Status Onset Bipolar disorder Acute Delusional disorder Acute Gravely disabled Acute Schizoaffective disorder Acute Acute psychosis Acute Altered mental status Acute Overdose Acute
[2016-04-28] MEDS: OXcarbazepine 300 MG TAB PO SCH (21:23)
[2016-04-28] MEDS: OLANZapine DISINTEGR 10 MG TAB PO SCH (21:23)
[2016-04-29] MEDS: NICOTINE POLACRILEX 2 MG GUM B PRN ×6 (09:00→16:37)
--- NOTE | 2016-04-29 18:11 | SOAPPROG ---
SOAP Progress Note Assessment/Plan: Assessment: Plan: 04/19/16 22:58 Remains manic and psychotic. Need COM if she is to stabilize.. 04/20/16 18:57 REmains manic. Needs additional PO meds. Will petition court. 04/21/16 17:34 Improving but history indicates she will not improve adequate to provide for safe d/c without PO meds. Will [facility], petition for involuntary meds. 04/23/16 07:59 Remains elevated, though coop. Will [facility]. 04/23/16 16:02 More irritable today. She continues to resist PO meds but is happy to accept IM. Will discuss with Dr. Goodwin the utility in seeking an order for PO meds as she is correct that we cannot give them to her against her will. Although Zyprexa is available in a long-acting injectable, I will not give it with Sustenna due to safety concerns. 04/24/16 22:30 CCM. 04/28/16 17:48 Pt remains psychotic. Sleeping well, less irritable, less pressured. Her current symptomology is consistent with the thought disorder component of her illness. Will [facility]. Continue d/c planning. Will put our support behind [facility]. 04/29/16 18:11 No interval change. [facility]CM. Subjective: Pt seen, discussed with staff. Remains pleasant and upbeat. Pleasantly delusional regarding husbands and BF's, weddings. Continues to refuse PO meds. Objective: Vital Signs Temp Pulse Resp BP Pulse Ox 36.6 C 94 12 110/58 L 92 04/15/16 10:02 04/15/16 10:02 04/15/16 10:02 04/15/16 10:02 04/15/16 10:02 MSE: Calm, coop. Affect is elevated. Mood is "great." TP tangential. TC reveals familiar delusional systems. No SI. - Time Spent With Patient Time Spent With Patient: 15" - Pending Discharge Pending Discharge Within 24 Hours: No Pending Discharge Within 48 Hours: No ICD10 Worksheet Patient Problems: Problems Problem Status Onset Bipolar disorder Acute Delusional disorder Acute Gravely disabled Acute Schizoaffective disorder Acute Acute psychosis Acute Altered mental status Acute Overdose Acute
[2016-04-29] MEDS: OLANZapine DISINTEGR 10 MG TAB PO SCH (23:09)
[2016-04-29] MEDS: OXcarbazepine 300 MG TAB PO SCH (23:10)
[2016-04-30] MEDS: NICOTINE POLACRILEX 2 MG GUM B PRN ×7 (08:56→17:59)
--- NOTE | 2016-04-30 15:57 | SOAPPROG ---
SOAP Progress Note Assessment/Plan: Assessment: Plan: 04/19/16 22:58 Remains manic and psychotic. Need COM if she is to stabilize.. 04/20/16 18:57 REmains manic. Needs additional PO meds. Will petition court. 04/21/16 17:34 Improving but history indicates she will not improve adequate to provide for safe d/c without PO meds. Will [facility], petition for involuntary meds. 04/23/16 07:59 Remains elevated, though coop. Will [facility]. 04/23/16 16:02 More irritable today. She continues to resist PO meds but is happy to accept IM. Will discuss with Dr. Goodwin the utility in seeking an order for PO meds as she is correct that we cannot give them to her against her will. Although Zyprexa is available in a long-acting injectable, I will not give it with Sustenna due to safety concerns. 04/24/16 22:30 CCM. 04/28/16 17:48 Pt remains psychotic. Sleeping well, less irritable, less pressured. Her current symptomology is consistent with the thought disorder component of her illness. Will [facility]. Continue d/c planning. Will put our support behind [facility]. 04/29/16 18:11 No interval change. [facility]. 04/30/16 15:56 Is approaching baseline. REmains delusional and likely unable to care for herself due to ongoing psychosis. Need d/c plan. Subjective: Pt seen, discussed with staff. Insists she is going home next Wednesday when her "pretend grandfather Deon" comes to pick her up. Remains pleasantly delusional. No aggression. Objective: Vital Signs Temp Pulse Resp BP Pulse Ox 36.6 C 94 12 110/58 L 92 04/15/16 10:02 04/15/16 10:02 04/15/16 10:02 04/15/16 10:02 04/15/16 10:02 MSE: Moderately activated, coop. Affect is elevated. Mood is "great." TP tangential. TC reveals grandiose, paranoid and erotomanic delusions. - Time Spent With Patient Time Spent With Patient: 15" - Pending Discharge Pending Discharge Within 24 Hours: No Pending Discharge Within 48 Hours: No ICD10 Worksheet Patient Problems: Problems Problem Status Onset Bipolar disorder Acute Delusional disorder Acute Gravely disabled Acute Schizoaffective disorder Acute Acute psychosis Acute Altered mental status Acute Overdose Acute
[2016-04-30] MEDS: OXcarbazepine 300 MG TAB PO SCH (21:09)
[2016-04-30] MEDS: OLANZapine DISINTEGR 10 MG TAB PO SCH (21:09)
[2016-05-01] MEDS: NICOTINE POLACRILEX 2 MG GUM B PRN ×9 (08:39→18:32)
[2016-05-01] MEDS: IBUPROFEN 600 MG TAB PO PRN (11:25)
--- NOTE | 2016-05-01 15:17 | SOAPPROG ---
SOAP Progress Note Assessment/Plan: Assessment: Plan: 04/19/16 22:58 Remains manic and psychotic. Need COM if she is to stabilize.. 04/20/16 18:57 REmains manic. Needs additional PO meds. Will petition court. 04/21/16 17:34 Improving but history indicates she will not improve adequate to provide for safe d/c without PO meds. Will [facility], petition for involuntary meds. 04/23/16 07:59 Remains elevated, though coop. Will [facility]. 04/23/16 16:02 More irritable today. She continues to resist PO meds but is happy to accept IM. Will discuss with Dr. Goodwin the utility in seeking an order for PO meds as she is correct that we cannot give them to her against her will. Although Zyprexa is available in a long-acting injectable, I will not give it with Sustenna due to safety concerns. 04/24/16 22:30 CCM. 04/28/16 17:48 Pt remains psychotic. Sleeping well, less irritable, less pressured. Her current symptomology is consistent with the thought disorder component of her illness. Will [facility]. Continue d/c planning. Will put our support behind [facility]. 04/29/16 18:11 No interval change. [facility]. 04/30/16 15:56 Is approaching baseline. REmains delusional and likely unable to care for herself due to ongoing psychosis. Need d/c plan. 05/01/16 15:16 No interval change. Remains delusional. [facility]. Will investigate this friend. Subjective: Pt seen, discussed with staff. Reports feeling "great." Continues to state she is moving to [place] with her friend Deon next week. Compliant with treatment though continues to refuse PO meds. Sleep stable, >10 hours per night. Eating well. Grooming adequate. Objective: Vital Signs Temp Pulse Resp BP Pulse Ox 36.6 C 94 12 110/58 L 92 04/15/16 10:02 04/15/16 10:02 04/15/16 10:02 04/15/16 10:02 04/15/16 10:02 MSE: Elevated, coop. Affect is expansive. Mood is "great." TP linear at times , tangential at others. TC reveals paranoid, erotomanic and grandiose delusions. - Time Spent With Patient Time Spent With Patient: 15" ICD10 Worksheet Patient Problems: Problems Problem Status Onset Bipolar disorder Acute Delusional disorder Acute Gravely disabled Acute Schizoaffective disorder Acute Acute psychosis Acute Altered mental status Acute Overdose Acute
[2016-05-01] MEDS ORDERED: OLANZapine 10 MG/2 ML VIAL IM ONE (20:00)
[2016-05-01] MEDS: OLANZapine DISINTEGR 10 MG TAB PO SCH (20:09)
[2016-05-01] MEDS: OXcarbazepine 300 MG TAB PO SCH (20:10)
[2016-05-02] MEDS: NICOTINE POLACRILEX 2 MG GUM B PRN ×2 (10:41→12:43)
--- NOTE | 2016-05-02 18:06 | SOAPPROG ---
SOAP Progress Note Assessment/Plan: Assessment:Patient with bipolar disorder appears manic with pressured speech and expansive mood. She was not compliant with medications for several days and her behavior was deteriorating, so she ended up receiving emergency medications last night after throwing a phone and becoming threatening to staff. She reportedly took her medications today. She is overly friendly and intrusive, but not willing to formally sit down with this creative services writer. No current safety issues. Plan: Continue medications and treatment. She will probably need a court order for medications and treatment. 05/02/16 18:02 05/02/16 18:10 05/02/16 18:11 Subjective: "You're so cute. How are you?" " I can't talk now, maybe after lunch." Objective: Vital Signs Temp Pulse Resp BP Pulse Ox 36.6 C 94 12 110/58 L 92 04/15/16 10:02 04/15/16 10:02 04/15/16 10:02 04/15/16 10:02 04/15/16 10:02 female appropriately dressed, moving about the unit space. Intruding on this creative services writer's conversations with other patients, but not willing to sit down with this creative services writer when specifically approached. [place] friendly. Speech- talkative. Mood- elevated. Affect- bright. Thought Process- flight of ideas. Thought Content - No SI/HI. No AH/VH. +delusional. - Pending Discharge Pending Discharge Within 24 Hours: No Pending Discharge Within 48 Hours: No ICD10 Worksheet Patient Problems: Problems Problem Status Onset Bipolar disorder Acute Delusional disorder Acute Gravely disabled Acute Schizoaffective disorder Acute Acute psychosis Acute Altered mental status Acute Overdose Acute
[2016-05-02] MEDS: OLANZapine DISINTEGR 10 MG TAB PO SCH (19:06)
[2016-05-02] MEDS: OXcarbazepine 300 MG TAB PO SCH (19:06)
[2016-05-03] MEDS: NICOTINE POLACRILEX 2 MG GUM B PRN ×4 (10:53→17:23)
--- NOTE | 2016-05-03 12:28 | SOAPPROG ---
SOAP Progress Note Assessment/Plan: Assessment:Patient with bipolar disorder appears manic with pressured speech and expansive mood. She continues to have delusional thoughts of a erotic nature. She is now compliant with medications after receiving emergency medications Wednesday night. She is moving from place to place, clapping her hands a lot, and talking with select staff including male security patrol driver. No current safety issues. Plan: Continue medications and treatment. She will probably need a court order for medications and treatment. 05/02/16 18:02 05/02/16 18:10 05/02/16 18:11 05/03/16 12:25 05/03/16 12:29 Subjective: "You're not my doctor." Objective: Vital Signs Temp Pulse Resp BP Pulse Ox 36.6 C 94 12 110/58 L 92 04/15/16 10:02 04/15/16 10:02 04/15/16 10:02 04/15/16 10:02 04/15/16 10:02 female, above average height, appropriately dressed. Hurried past this handbook writer. No eye contact. Speech- Rapid. Mood- Expansive. Affect- irritated. Thought Process- poverty of thought. THought Content - No SI/HI voiced. + delusional. Insight - Poor. Judgment - Poor. - Pending Discharge Pending Discharge Within 24 Hours: No Pending Discharge Within 48 Hours: No ICD10 Worksheet Patient Problems: Problems Problem Status Onset Bipolar disorder Acute Delusional disorder Acute Gravely disabled Acute Schizoaffective disorder Acute Acute psychosis Acute Altered mental status Acute Overdose Acute
[2016-05-03] MEDS: OXcarbazepine 300 MG TAB PO SCH (20:55)
[2016-05-03] MEDS: OLANZapine DISINTEGR 10 MG TAB PO SCH (20:55)
[2016-05-04] MEDS: NICOTINE POLACRILEX 2 MG GUM B PRN ×5 (09:06→18:44)
--- NOTE | 2016-05-04 14:19 | SOAPPROG ---
SOAP Progress Note Assessment/Plan: Assessment: Plan: 04/19/16 22:58 Remains manic and psychotic. Need COM if she is to stabilize.. 04/20/16 18:57 REmains manic. Needs additional PO meds. Will petition court. 04/21/16 17:34 Improving but history indicates she will not improve adequate to provide for safe d/c without PO meds. Will [facility], petition for involuntary meds. 04/23/16 07:59 Remains elevated, though coop. Will CCM. 04/23/16 16:02 More irritable today. She continues to resist PO meds but is happy to accept IM. Will discuss with Dr. Goodwin the utility in seeking an order for PO meds as she is correct that we cannot give them to her against her will. Although Zyprexa is available in a long-acting injectable, I will not give it with S[facility] due to safety concerns. 04/24/16 22:30 CCM. 04/28/16 17:48 Pt remains psychotic. Sleeping well, less irritable, less pressured. Her current symptomology is consistent with the thought disorder component of her illness. Will [facility]. Continue d/c planning. Will put our support behind [facility]. 04/29/16 18:11 No interval change. [facility]. 04/30/16 15:56 Is approaching baseline. REmains delusional and likely unable to care for herself due to ongoing psychosis. Need d/c plan. 05/01/16 15:16 No interval change. Remains delusional. [facility]. Will investigate this friend. 05/04/16 14:19 Improved. Will [facility]. Continue d/c planning. I agree with plan for /[facility]. Subjective: Pt seen, discussed with staff, chart reviewed. Reports feeling "great". Plan to go to [place] with friend did not materialize. Pt now states she is willing to go to [facility]. Has been taking PO meds for the past two days. Objective: Vital Signs Temp Pulse Resp BP Pulse Ox 36.6 C 94 12 110/58 L 92 04/15/16 10:02 04/15/16 10:02 04/15/16 10:02 04/15/16 10:02 04/15/16 10:02 MSE: [place], coop. Affect is euthymic, less expansive. Mood is "great." TP is generally linear, though prone to wandering off into delusional systems. She is more redirectable. TC reveals continued familiar delusional systems. - Time Spent With Patient Time Spent With Patient: 15" - Pending Discharge Pending Discharge Within 24 Hours: No Pending Discharge Within 48 Hours: No ICD10 Worksheet Patient Problems: Problems Problem Status Onset Bipolar disorder Acute Delusional disorder Acute Gravely disabled Acute Schizoaffective disorder Acute Acute psychosis Acute Altered mental status Acute Overdose Acute
[2016-05-04] MEDS: OXcarbazepine 300 MG TAB PO SCH (17:44)
[2016-05-04] MEDS: OLANZapine DISINTEGR 10 MG TAB PO SCH (17:45)
[2016-05-05] MEDS: NICOTINE POLACRILEX 2 MG GUM B PRN (10:17)
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
[2016-05-05] MEDS: OXcarbazepine 300 MG TAB PO SCH (20:52)
[2016-05-05] MEDS: OLANZapine DISINTEGR 10 MG TAB PO SCH (20:52)
[2016-05-06] MEDS: NICOTINE POLACRILEX 2 MG GUM B PRN ×4 (08:56→14:32)
--- NOTE | 2016-05-06 11:55 | SOAPPROG ---
SOAP Progress Note Assessment/Plan: Assessment: Plan: 04/19/16 22:58 Remains manic and psychotic. Need COM if she is to stabilize.. 04/20/16 18:57 REmains manic. Needs additional PO meds. Will petition court. 04/21/16 17:34 Improving but history indicates she will not improve adequate to provide for safe d/c without PO meds. Will [facility], petition for involuntary meds. 04/23/16 07:59 Remains elevated, though coop. Will CCM. 04/23/16 16:02 More irritable today. She continues to resist PO meds but is happy to accept IM. Will discuss with Dr. Goodwin the utility in seeking an order for PO meds as she is correct that we cannot give them to her against her will. Although Zyprexa is available in a long-acting injectable, I will not give it with [facility] due to safety concerns. 04/24/16 22:30 CCM. 04/28/16 17:48 Pt remains psychotic. Sleeping well, less irritable, less pressured. Her current symptomology is consistent with the thought disorder component of her illness. Will [facility]. Continue d/c planning. Will put our support behind [facility]. 04/29/16 18:11 No interval change. CCM. 04/30/16 15:56 Is approaching baseline. REmains delusional and likely unable to care for herself due to ongoing psychosis. Need d/c plan. 05/01/16 15:16 No interval change. Remains delusional. [facility]. Will investigate this friend. 05/04/16 14:19 Improved. Will [facility]. Continue d/c planning. I agree with plan for [facility]. 05/05/16 17:24 Remains delusional and intermittently elevated. I believe she appropriate for [facility]. Await opinion from Dr. Carreno. 05/06/16 11:55 On a tangent today re: [place]. Our previous information was that they had terminated services with her. Will [facility], monitor behaviors and disposition. Subjective: Pt seen, discussed with staff. Elevated and escalated today. States now she is going back to her own apartment. Denies that her mother got rid of it. States she is going to [facility]. They are reported coming to talk to her today. Refusing to consider [facility] now. Objective: Vital Signs Temp Pulse Resp BP Pulse Ox 36.6 C 94 12 110/58 L 92 04/15/16 10:02 04/15/16 10:02 04/15/16 10:02 04/15/16 10:02 04/15/16 10:02 MSE: Agitated, pressured. Affect is elevated, irritable. Mood is "great." TP tangential. TC reveals continued delusions. - Time Spent With Patient Time Spent With Patient: 25" - Pending Discharge Pending Discharge Within 24 Hours: No Pending Discharge Within 48 Hours: No ICD10 Worksheet Patient Problems: Problems Problem Status Onset Bipolar disorder Acute Delusional disorder Acute Gravely disabled Acute Schizoaffective disorder Acute Acute psychosis Acute Altered mental status Acute Overdose Acute
[2016-05-06] MEDS: OLANZapine DISINTEGR 10 MG TAB PO SCH (21:16)
[2016-05-06] MEDS: OXcarbazepine 300 MG TAB PO SCH (21:16)
[2016-05-07] MEDS: NICOTINE POLACRILEX 2 MG GUM B PRN ×3 (10:38→18:23)
--- NOTE | 2016-05-07 16:30 | SOAPPROG ---
SOAP Progress Note Assessment/Plan: Assessment: Plan: 04/19/16 22:58 Remains manic and psychotic. Need COM if she is to stabilize.. 04/20/16 18:57 REmains manic. Needs additional PO meds. Will petition court. 04/21/16 17:34 Improving but history indicates she will not improve adequate to provide for safe d/c without PO meds. Will [facility], petition for involuntary meds. 04/23/16 07:59 Remains elevated, though coop. Will CCM. 04/23/16 16:02 More irritable today. She continues to resist PO meds but is happy to accept IM. Will discuss with Dr. Goodwin the utility in seeking an order for PO meds as she is correct that we cannot give them to her against her will. Although Zyprexa is available in a long-acting injectable, I will not give it with [facility] due to safety concerns. 04/24/16 22:30 CCM. 04/28/16 17:48 Pt remains psychotic. Sleeping well, less irritable, less pressured. Her current symptomology is consistent with the thought disorder component of her illness. Will [facility]. Continue d/c planning. Will put our support behind [facility]. 04/29/16 18:11 No interval change. CCM. 04/30/16 15:56 Is approaching baseline. REmains delusional and likely unable to care for herself due to ongoing psychosis. Need d/c plan. 05/01/16 15:16 No interval change. Remains delusional. [facility]. Will investigate this friend. 05/04/16 14:19 Improved. Will [facility]. Continue d/c planning. I agree with plan for /[facility]. 05/05/16 17:24 Remains delusional and intermittently elevated. I believe she appropriate for [facility]. Await opinion from Dr. Carreno. 05/06/16 11:55 On a tangent today re: [place]. Our previous information was that they had terminated services with her. Will [facility], monitor behaviors and disposition. 05/07/16 16:30 Remains tenuous. Unclear whether she would be able to conform her behaviors at [facility]. Will discuss with Dr. Carreno, [facility]. Subjective: Pt seen, discussed with staff. Animated and intrusive. Accosts me immediately on entering the unit stating she is leaving today to go to [facility]. She interrupts me numerous more times during my rounds asking if I have talked to them. I left a message for Dr. Carreno. Objective: Vital Signs Temp Pulse Resp BP Pulse Ox 36.6 C 94 12 110/58 L 92 04/15/16 10:02 04/15/16 10:02 04/15/16 10:02 04/15/16 10:02 04/15/16 10:02 - Time Spent With Patient Time Spent With Patient: 25" - Pending Discharge Pending Discharge Within 24 Hours: No Pending Discharge Within 48 Hours: No ICD10 Worksheet Patient Problems: Problems Problem Status Onset Bipolar disorder Acute Delusional disorder Acute Gravely disabled Acute Schizoaffective disorder Acute Acute psychosis Acute Altered mental status Acute Overdose Acute
[2016-05-07] MEDS: OXcarbazepine 300 MG TAB PO SCH (20:09)
[2016-05-07] MEDS: OLANZapine DISINTEGR 10 MG TAB PO SCH (20:09)
[2016-05-08] MEDS: NICOTINE POLACRILEX 2 MG GUM B PRN ×7 (08:14→16:47)
--- NOTE | 2016-05-08 12:45 | SOAPPROG ---
SOAP Progress Note Assessment/Plan: Assessment: Plan: 04/19/16 22:58 Remains manic and psychotic. Need COM if she is to stabilize.. 04/20/16 18:57 REmains manic. Needs additional PO meds. Will petition court. 04/21/16 17:34 Improving but history indicates she will not improve adequate to provide for safe d/c without PO meds. Will [facility], petition for involuntary meds. 04/23/16 07:59 Remains elevated, though coop. Will [facility]. 04/23/16 16:02 More irritable today. She continues to resist PO meds but is happy to accept IM. Will discuss with Dr. Goodwin the utility in seeking an order for PO meds as she is correct that we cannot give them to her against her will. Although Zyprexa is available in a long-acting injectable, I will not give it with [facility] due to safety concerns. 04/24/16 22:30 CCM. 04/28/16 17:48 Pt remains psychotic. Sleeping well, less irritable, less pressured. Her current symptomology is consistent with the thought disorder component of her illness. Will [facility]. Continue d/c planning. Will put our support behind [facility]. 04/29/16 18:11 No interval change. [facility]. 04/30/16 15:56 Is approaching baseline. REmains delusional and likely unable to care for herself due to ongoing psychosis. Need d/c plan. 05/01/16 15:16 No interval change. Remains delusional. [facility]. Will investigate this friend. 05/04/16 14:19 Improved. Will [facility]. Continue d/c planning. I agree with plan for /[facility]. 05/05/16 17:24 Remains delusional and intermittently elevated. I believe she appropriate for [facility]. Await opinion from Dr. Carreno. 05/06/16 11:55 On a tangent today re: [facility]. Our previous information was that they had terminated services with her. Will [facility], monitor behaviors and disposition. 05/07/16 16:30 Remains tenuous. Unclear whether she would be able to conform her behaviors at [facility]. Will discuss with Dr. Carreno, [facility]. 05/08/16 12:45 Remains agitated, psychotic, elevated. Dr. Carreno wants her to take a mood stabilizer which I agree with. WIll proceed with [facility] petition. Subjective: Pt seen, discussed with staff. Reports feeling "great." Quite animated, singing , dancing, yelling and laughing loudly. Continues to state she is going to [place] to live with her friend Deon. Refuses to consider [facility] at this point. Objective: Vital Signs Temp Pulse Resp BP Pulse Ox 36.6 C 94 12 110/58 L 92 04/15/16 10:02 04/15/16 10:02 04/15/16 10:02 04/15/16 10:02 04/15/16 10:02 MSE: Agitated, animated. Affect is elevated, labile. Mood is "great." TP tangential. TC reveals continued grandiose, erotomanic and paranoid delusions. - Time Spent With Patient Time Spent With Patient: 25" - Pending Discharge Pending Discharge Within 24 Hours: No Pending Discharge Within 48 Hours: No ICD10 Worksheet Patient Problems: Problems Problem Status Onset Bipolar disorder Acute Delusional disorder Acute Gravely disabled Acute Schizoaffective disorder Acute Acute psychosis Acute Altered mental status Acute Overdose Acute
[2016-05-08] MEDS: OLANZapine DISINTEGR 10 MG TAB PO SCH (21:28)
[2016-05-08] MEDS: OXcarbazepine 300 MG TAB PO SCH (21:29)
[2016-05-09] MEDS: OLANZapine DISINTEGR 10 MG TAB PO SCH ×2 (00:01→18:36)
[2016-05-09] MEDS: OXcarbazepine 300 MG TAB PO SCH ×2 (00:02→18:36)
--- NOTE | 2016-05-09 10:48 | SOAPPROG ---
SOAP Progress Note Assessment/Plan: Assessment: 35yo CF admitted again in manic state with delusions in context of med noncompliance 05/09/16 10:39 per staff, slept 12hrs still intermittently compliant with PO meds, took at [place] last night. Wants to leave /3 to [place] MSE: still with delusional thoughts, no si/hi or ah/vh. mood "just fine", affect labile, only allowing interview on her terms PLAN: -cont current meds. will only regularly take IM. -last Inve[facility] S[facility]enna 04/20, next due 05/11/16 -consider incr freq of IM instead of current PO, given her hx of po med n/c, although still refused scheduled IM in community depending on who was to administer -On [facility]. outpt wants [place] meds. consider asking pt for stipulation? Objective: Vital Signs Temp Pulse Resp BP Pulse Ox 36.6 C 94 12 110/58 L 92 04/15/16 10:02 04/15/16 10:02 04/15/16 10:02 04/15/16 10:02 04/15/16 10:02 - Time Spent With Patient Time Spent With Patient: 10 min - Pending Discharge Pending Discharge Within 24 Hours: No Pending Discharge Within 48 Hours: No ICD10 Worksheet Patient Problems: Problems Problem Status Onset Bipolar disorder Acute Delusional disorder Acute Gravely disabled Acute Schizoaffective disorder Acute Acute psychosis Acute Altered mental status Acute Overdose Acute
[2016-05-09] MEDS: NICOTINE POLACRILEX 2 MG GUM B PRN ×3 (11:37→17:11)
[2016-05-10] MEDS: OXcarbazepine 300 MG TAB PO SCH (18:31)
[2016-05-10] MEDS: OLANZapine DISINTEGR 10 MG TAB PO SCH (18:32)
--- NOTE | 2016-05-11 09:22 | SOAPPROG ---
SOAP Progress Note Assessment/Plan: Assessment: 35yo CF admitted again in manic state with delusions in context of med noncompliance 05/09/16 10:39 per staff, slept 12hrs still intermittently compliant with PO meds, took [place] last night. Wants to leave 3 to [place] MSE: still with delusional thoughts, no si/hi or ah/vh. mood "just fine", affect labile, only allowing interview on her terms PLAN: -cont current meds. will only regularly take IM. -last Invega Sustenna 04/20, next due 05/11/16 -consider incr freq of IM instead of current PO, given her hx of po med n/c, although still refused scheduled IM in community depending on who was to administer -On [facility]. outpt wants [place] meds. consider asking pt for stipulation? Objective: Vital Signs Temp Pulse Resp BP Pulse Ox 36.6 C 94 12 110/58 L 92 04/15/16 10:02 04/15/16 10:02 04/15/16 10:02 04/15/16 10:02 04/15/16 10:02 - Pending Discharge Pending Discharge Within 24 Hours: No Pending Discharge Within 48 Hours: No ICD10 Worksheet Patient Problems: Problems Problem Status Onset Bipolar disorder Acute Delusional disorder Acute Gravely disabled Acute Schizoaffective disorder Acute Acute psychosis Acute Altered mental status Acute Overdose Acute
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
--- NOTE | 2016-05-11 14:41 | SOAPPROG ---
SOAP Progress Note Assessment/Plan: Assessment: Plan: 04/19/16 22:58 Remains manic and psychotic. Need COM if she is to stabilize.. 04/20/16 18:57 REmains manic. Needs additional PO meds. Will petition court. 04/21/16 17:34 Improving but history indicates she will not improve adequate to provide for safe d/c without PO meds. Will [facility], petition for involuntary meds. 04/23/16 07:59 Remains elevated, though coop. Will [facility]. 04/23/16 16:02 More irritable today. She continues to resist PO meds but is happy to accept IM. Will discuss with Dr. Goodwin the utility in seeking an order for PO meds as she is correct that we cannot give them to her against her will. Although Zyprexa is available in a long-acting injectable, I will not give it with Sustenna due to safety concerns. 04/24/16 22:30 CCM. 04/28/16 17:48 Pt remains psychotic. Sleeping well, less irritable, less pressured. Her current symptomology is consistent with the thought disorder component of her illness. Will [facility]. Continue d/c planning. Will put our support behind [facility]. 04/29/16 18:11 No interval change. [facility]. 04/30/16 15:56 Is approaching baseline. REmains delusional and likely unable to care for herself due to ongoing psychosis. Need d/c plan. 05/01/16 15:16 No interval change. Remains delusional. [facility]. Will investigate this friend. 05/04/16 14:19 Improved. Will [facility]. Continue d/c planning. I agree with plan for /[facility]. 05/05/16 17:24 Remains delusional and intermittently elevated. I believe she appropriate for [facility]. Await opinion from Dr. Carreno. 05/06/16 11:55 On a tangent today re: [facility]. Our previous information was that they had terminated services with her. Will [facility], monitor behaviors and disposition. 05/07/16 16:30 Remains tenuous. Unclear whether she would be able to conform her behaviors at [facility]. Will discuss with Dr. Carreno, [facility]. 05/08/16 12:45 Remains agitated, psychotic, elevated. Dr. Carreno wants her to take a mood stabilizer which I agree with. WIll proceed with COM petition. 05/11/16 14:39 Remains agitated, threatening at times, pressured and delusional. She has very little insight into illness and is clearly gravely disabled. Will [facility], petition for COM. Subjective: Pt seen, discussed with staff, chart reviewed. She remains agitated, delusional. Became hostile and threatening with Dr. Carreno on Wednesday. She now states, "I shouldn't have done that. I want to talk to him again." Dr. Carreno continues to request COM and a mood stabilizer. Objective: Vital Signs Temp Pulse Resp BP Pulse Ox 36.6 C 94 12 110/58 L 92 04/15/16 10:02 04/15/16 10:02 04/15/16 10:02 04/15/16 10:02 04/15/16 10:02 MSE: Very loud, yelling, laughing inappropriately. Affect is elevated, irritable, expansive. Mood is "great." TP is tangential. TC reveals continued familiar delusional processes. - Time Spent With Patient Time Spent With Patient: 25" - Pending Discharge Pending Discharge Within 24 Hours: No Pending Discharge Within 48 Hours: No ICD10 Worksheet Patient Problems: Problems Problem Status Onset Bipolar disorder Acute Delusional disorder Acute Gravely disabled Acute Schizoaffective disorder Acute Acute psychosis Acute Altered mental status Acute Overdose Acute
[2016-05-11] MEDS: NICOTINE POLACRILEX 2 MG GUM B PRN (15:14)
[2016-05-11] MEDS: OLANZapine DISINTEGR 10 MG TAB PO SCH (17:39)
[2016-05-11] MEDS: OXcarbazepine 300 MG TAB PO SCH (17:41)
[2016-05-12] MEDS ORDERED: PALIPERIDONE PALMITATE 234 MG/1.5 ML SYR IM ONE (13:36)
[2016-05-12] MEDS: NICOTINE POLACRILEX 2 MG GUM B PRN (13:51)
[2016-05-12] MEDS: OLANZapine DISINTEGR 10 MG TAB PO SCH (16:57)
[2016-05-12] MEDS: OXcarbazepine 300 MG TAB PO SCH (16:57)
--- NOTE | 2016-05-12 17:48 | SOAPPROG ---
SOAP Progress Note Assessment/Plan: Assessment: Plan: 04/19/16 22:58 Remains manic and psychotic. Need COM if she is to stabilize.. 04/20/16 18:57 REmains manic. Needs additional PO meds. Will petition court. 04/21/16 17:34 Improving but history indicates she will not improve adequate to provide for safe d/c without PO meds. Will [facility], petition for involuntary meds. 04/23/16 07:59 Remains elevated, though coop. Will [facility]. 04/23/16 16:02 More irritable today. She continues to resist PO meds but is happy to accept IM. Will discuss with Dr. Goodwin the utility in seeking an order for PO meds as she is correct that we cannot give them to her against her will. Although Zyprexa is available in a long-acting injectable, I will not give it with Sustenna due to safety concerns. 04/24/16 22:30 CCM. 04/28/16 17:48 Pt remains psychotic. Sleeping well, less irritable, less pressured. Her current symptomology is consistent with the thought disorder component of her illness. Will [facility]. Continue d/c planning. Will put our support behind [facility]. 04/29/16 18:11 No interval change. [facility]. 04/30/16 15:56 Is approaching baseline. REmains delusional and likely unable to care for herself due to ongoing psychosis. Need d/c plan. 05/01/16 15:16 No interval change. Remains delusional. [facility]. Will investigate this friend. 05/04/16 14:19 Improved. Will [facility]. Continue d/c planning. I agree with plan for /[facility]. 05/05/16 17:24 Remains delusional and intermittently elevated. I believe she appropriate for [facility]. Await opinion from Dr. Carreno. 05/06/16 11:55 On a tangent today re: [facility]. Our previous information was that they had terminated services with her. Will [facility], monitor behaviors and disposition. 05/07/16 16:30 Remains tenuous. Unclear whether she would be able to conform her behaviors at [facility]. Will discuss with Dr. Carreno, [facility]. 05/08/16 12:45 Remains agitated, psychotic, elevated. Dr. Carreno wants her to take a mood stabilizer which I agree with. WIll proceed with COM petition. 05/11/16 14:39 Remains agitated, threatening at times, pressured and delusional. She has very little insight into illness and is clearly gravely disabled. Will [facility], petition for COM. 05/12/16 17:47 No interval change. Pt now taking PO meds. Will hold on COM. Subjective: Pt seen, discussed with staff. Remains intermittently agitated, requiring frequent staff redirection for loud and disruptive behaviors. Compliant with PO meds now. States she is willing to take them but not VPA or lithium. Objective: Vital Signs Temp Pulse Resp BP Pulse Ox 36.6 C 94 12 110/58 L 92 04/15/16 10:02 04/15/16 10:02 04/15/16 10:02 04/15/16 10:02 04/15/16 10:02 MSE: Moderately agitated, coop. Affect is elevated, expansive. Mood is "great." TP tangential at times. TC reveals paranoid, grandiose and erotomanic delusions. - Time Spent With Patient Time Spent With Patient: 25" - Pending Discharge Pending Discharge Within 24 Hours: No Pending Discharge Within 48 Hours: No ICD10 Worksheet Patient Problems: Problems Problem Status Onset Bipolar disorder Acute Delusional disorder Acute Gravely disabled Acute Schizoaffective disorder Acute Acute psychosis Acute Altered mental status Acute Overdose Acute
[2016-05-13] MEDS: IBUPROFEN 600 MG TAB PO PRN (12:49)
--- NOTE | 2016-05-13 12:51 | SOAPPROG ---
SOAP Progress Note Assessment/Plan: Assessment: Plan: 04/19/16 22:58 Remains manic and psychotic. Need COM if she is to stabilize.. 04/20/16 18:57 REmains manic. Needs additional PO meds. Will petition court. 04/21/16 17:34 Improving but history indicates she will not improve adequate to provide for safe d/c without PO meds. Will [facility], petition for involuntary meds. 04/23/16 07:59 Remains elevated, though coop. Will [facility]. 04/23/16 16:02 More irritable today. She continues to resist PO meds but is happy to accept IM. Will discuss with Dr. Goodwin the utility in seeking an order for PO meds as she is correct that we cannot give them to her against her will. Although Zyprexa is available in a long-acting injectable, I will not give it with Sustenna due to safety concerns. 04/24/16 22:30 CCM. 04/28/16 17:48 Pt remains psychotic. Sleeping well, less irritable, less pressured. Her current symptomology is consistent with the thought disorder component of her illness. Will [facility]. Continue d/c planning. Will put our support behind [facility]. 04/29/16 18:11 No interval change. [facility]. 04/30/16 15:56 Is approaching baseline. REmains delusional and likely unable to care for herself due to ongoing psychosis. Need d/c plan. 05/01/16 15:16 No interval change. Remains delusional. [facility]. Will investigate this friend. 05/04/16 14:19 Improved. Will [facility]. Continue d/c planning. I agree with plan for /[facility]. 05/05/16 17:24 Remains delusional and intermittently elevated. I believe she appropriate for [facility]. Await opinion from Dr. Carreno. 05/06/16 11:55 On a tangent today re: [facility]. Our previous information was that they had terminated services with her. Will [facility], monitor behaviors and disposition. 05/07/16 16:30 Remains tenuous. Unclear whether she would be able to conform her behaviors at [facility]. Will discuss with Dr. Carreno, [facility]. 05/08/16 12:45 Remains agitated, psychotic, elevated. Dr. Carreno wants her to take a mood stabilizer which I agree with. WIll proceed with COM petition. 05/11/16 14:39 Remains agitated, threatening at times, pressured and delusional. She has very little insight into illness and is clearly gravely disabled. Will [facility], petition for COM. 05/12/16 17:47 No interval change. Pt now taking PO meds. Will hold on COM. 05/13/16 12:50 Remains elevated, delusional. [facility]. Await reevaluation by Dr. Carreno. Subjective: Pt seen, discussed with staff. Reports feeling "great" per usual. States now that she wants to go to [facility]. Compliant with PO meds for the past four days. Received Invega Unicotripenna yesterday without incident. Objective: Vital Signs Temp Pulse Resp BP Pulse Ox 36.6 C 94 12 110/58 L 92 04/15/16 10:02 04/15/16 10:02 04/15/16 10:02 04/15/16 10:02 04/15/16 10:02 - Time Spent With Patient Time Spent With Patient: 25" - Pending Discharge Pending Discharge Within 24 Hours: No Pending Discharge Within 48 Hours: No ICD10 Worksheet Patient Problems: Problems Problem Status Onset Bipolar disorder Acute Delusional disorder Acute Gravely disabled Acute Schizoaffective disorder Acute Acute psychosis Acute Altered mental status Acute Overdose Acute
[2016-05-13] MEDS: OLANZapine DISINTEGR 10 MG TAB PO SCH (19:28)
[2016-05-13] MEDS: OXcarbazepine 300 MG TAB PO SCH (19:28)
--- NOTE | 2016-05-14 14:52 | SOAPPROG ---
SOAP Progress Note Assessment/Plan: Assessment: Plan: 04/19/16 22:58 Remains manic and psychotic. Need COM if she is to stabilize.. 04/20/16 18:57 REmains manic. Needs additional PO meds. Will petition court. 04/21/16 17:34 Improving but history indicates she will not improve adequate to provide for safe d/c without PO meds. Will [facility], petition for involuntary meds. 04/23/16 07:59 Remains elevated, though coop. Will [facility]. 04/23/16 16:02 More irritable today. She continues to resist PO meds but is happy to accept IM. Will discuss with Dr. Goodwin the utility in seeking an order for PO meds as she is correct that we cannot give them to her against her will. Although Zyprexa is available in a long-acting injectable, I will not give it with Sustenna due to safety concerns. 04/24/16 22:30 CCM. 04/28/16 17:48 Pt remains psychotic. Sleeping well, less irritable, less pressured. Her current symptomology is consistent with the thought disorder component of her illness. Will [facility]. Continue d/c planning. Will put our support behind [facility]. 04/29/16 18:11 No interval change. [facility]. 04/30/16 15:56 Is approaching baseline. REmains delusional and likely unable to care for herself due to ongoing psychosis. Need d/c plan. 05/01/16 15:16 No interval change. Remains delusional. [facility]. Will investigate this friend. 05/04/16 14:19 Improved. Will [facility]. Continue d/c planning. I agree with plan for /[facility]. 05/05/16 17:24 Remains delusional and intermittently elevated. I believe she appropriate for [facility]. Await opinion from Dr. Carreno. 05/06/16 11:55 On a tangent today re: [facility]. Our previous information was that they had terminated services with her. Will [facility], monitor behaviors and disposition. 05/07/16 16:30 Remains tenuous. Unclear whether she would be able to conform her behaviors at [facility]. Will discuss with Dr. Carreno, [facility]. 05/08/16 12:45 Remains agitated, psychotic, elevated. Dr. Carreno wants her to take a mood stabilizer which I agree with. WIll proceed with COM petition. 05/11/16 14:39 Remains agitated, threatening at times, pressured and delusional. She has very little insight into illness and is clearly gravely disabled. Will [facility], petition for COM. 05/12/16 17:47 No interval change. Pt now taking PO meds. Will hold on COM. 05/13/16 12:50 Remains elevated, delusional. [facility]. Await reevaluation by Dr. Carreno. 05/14/16 14:52 No significant change. Day #4 of compliance with PO meds. [facility]. Subjective: Pt seen, discussed with staff. Reports feeling "frustrated." Wants to talk to Dr. Carreno and go to [facility]. Remains generally elevated, impulsive, loud. No aggression. Compliant with oral meds. Sleeping >12 hours per night. Objective: Vital Signs Temp Pulse Resp BP Pulse Ox 36.6 C 94 12 110/58 L 92 04/15/16 10:02 04/15/16 10:02 04/15/16 10:02 04/15/16 10:02 04/15/16 10:02 - Time Spent With Patient Time Spent With Patient: 15" - Pending Discharge Pending Discharge Within 24 Hours: No Pending Discharge Within 48 Hours: No ICD10 Worksheet Patient Problems: Problems Problem Status Onset Bipolar disorder Acute Delusional disorder Acute Gravely disabled Acute Schizoaffective disorder Acute Acute psychosis Acute Altered mental status Acute Overdose Acute
[2016-05-14] MEDS: OLANZapine DISINTEGR 10 MG TAB PO SCH (19:05)
[2016-05-14] MEDS: OXcarbazepine 300 MG TAB PO SCH (19:05)
[2016-05-15] MEDS: NICOTINE POLACRILEX 2 MG GUM B PRN ×3 (11:23→17:09)
[2016-05-15] MEDS: OLANZapine DISINTEGR 10 MG TAB PO SCH (21:09)
[2016-05-15] MEDS: OXcarbazepine 300 MG TAB PO SCH (21:09)
--- NOTE | 2016-05-16 14:11 | SOAPPROG ---
SOAP Progress Note Assessment/Plan: Assessment:Patient with bipolar disorder dismissive. Refused to talk with this marketing copywriter.The patient made a gesture as if to physically remove this marketing copywriter from the patient's room, but the patient was easily redirected not to touch this writher. She did later come close to this marketing copywriter when this marketing copywriter was talking to a male peer of the patient's. The patient was sugary nice during that encounter. She remains delusional with mood lability. She is complaint with medications at this time. Excessive amounts of sleep (11 to 14 hours a day). Plan: Continue medications and treatment. 05/02/16 18:02 05/02/16 18:10 05/02/16 18:11 05/03/16 12:25 05/03/16 12:29 05/16/16 14:08 05/16/16 14:11 05/16/16 14:15 Subjective: ""I don't need to talk with you. I need to talk with my doctor on Wednesday. Thank you! Can you leave so I can take a nap." Objective: Vital Signs Temp Pulse Resp BP Pulse Ox 36.6 C 94 12 110/58 L 92 04/15/16 10:02 04/15/16 10:02 04/15/16 10:02 04/15/16 10:02 04/15/16 10:[address], initially sitting on the bed by the window eating her breakfast. She did rise up, walk towards this marketing copywriter, get in this writers space with raised hands as if to push this marketing copywriter out of the room. She did go back to sitting when warned not to touch this marketing copywriter. Mood- labile. Affect- Angry. Thought Process - Goal directed. Thought Content - No SI/HI. Insight and Judgment - Poor. - Time Spent With Patient Time Spent With Patient: 15 minutes - Pending Discharge Pending Discharge Within 24 Hours: No Pending Discharge Within 48 Hours: No ICD10 Worksheet Patient Problems: Problems Problem Status Onset Bipolar disorder Acute Delusional disorder Acute Gravely disabled Acute Schizoaffective disorder Acute Acute psychosis Acute Altered mental status Acute Overdose Acute
[2016-05-16] MEDS: OLANZapine DISINTEGR 10 MG TAB PO SCH (21:25)
[2016-05-16] MEDS: OXcarbazepine 300 MG TAB PO SCH (21:25)
--- NOTE | 2016-05-17 10:17 | SOAPPROG ---
SOAP Progress Note Assessment/Plan: Assessment: Plan: 04/19/16 22:58 Remains manic and psychotic. Need COM if she is to stabilize.. 04/20/16 18:57 REmains manic. Needs additional PO meds. Will petition court. 04/21/16 17:34 Improving but history indicates she will not improve adequate to provide for safe d/c without PO meds. Will [facility], petition for involuntary meds. 04/23/16 07:59 Remains elevated, though coop. Will [facility]. 04/23/16 16:02 More irritable today. She continues to resist PO meds but is happy to accept IM. Will discuss with Dr. Goodwin the utility in seeking an order for PO meds as she is correct that we cannot give them to her against her will. Although Zyprexa is available in a long-acting injectable, I will not give it with Sustenna due to safety concerns. 04/24/16 22:30 CCM. 04/28/16 17:48 Pt remains psychotic. Sleeping well, less irritable, less pressured. Her current symptomology is consistent with the thought disorder component of her illness. Will [facility]. Continue d/c planning. Will put our support behind [facility]. 04/29/16 18:11 No interval change. [facility]. 04/30/16 15:56 Is approaching baseline. REmains delusional and likely unable to care for herself due to ongoing psychosis. Need d/c plan. 05/01/16 15:16 No interval change. Remains delusional. [facility]. Will investigate this friend. 05/04/16 14:19 Improved. Will [facility]. Continue d/c planning. I agree with plan for /[facility]. 05/05/16 17:24 Remains delusional and intermittently elevated. I believe she appropriate for [facility]. Await opinion from Dr. Carreno. 05/06/16 11:55 On a tangent today re: [facility]. Our previous information was that they had terminated services with her. Will [facility], monitor behaviors and disposition. 05/07/16 16:30 Remains tenuous. Unclear whether she would be able to conform her behaviors at [facility]. Will discuss with Dr. Carreno, [facility]. 05/08/16 12:45 Remains agitated, psychotic, elevated. Dr. Carreno wants her to take a mood stabilizer which I agree with. WIll proceed with COM petition. 05/11/16 14:39 Remains agitated, threatening at times, pressured and delusional. She has very little insight into illness and is clearly gravely disabled. Will [facility], petition for COM. 05/12/16 17:47 No interval change. Pt now taking PO meds. Will hold on COM. 05/13/16 12:50 Remains elevated, delusional. [facility]. Await reevaluation by Dr. Carreno. 05/14/16 14:52 No significant change. Day #4 of compliance with PO meds. [facility]. 05/17/16 10:17 Slow improvement with PO meds. [facility]. Subjective: LATE ENTRY FOR 05/15/16. Pt seen, discussed with staff. Continues to sleep >12 hours per night and then awaken with a high level of psychomotor activity, pressured thoughts, immersion in delusional systems. Dr. Carreno saw her again yesterday and reported to me that he did not think she was ready for yet. She states she is going to [facility] now and not . Objective: Vital Signs Temp Pulse Resp BP Pulse Ox 36.6 C 94 12 110/58 L 92 04/15/16 10:02 04/15/16 10:02 04/15/16 10:02 04/15/16 10:02 04/15/16 10:02 MSE: Loud, intrusive, though redirectible. Affect is elevated, expansive. Mood is "great." TP tangential. TC reveals familiar paranoid, erotomanic and grandiose delusions. - Time Spent With Patient Time Spent With Patient: 25" - Pending Discharge Pending Discharge Within 24 Hours: No Pending Discharge Within 48 Hours: No ICD10 Worksheet Patient Problems: Problems Problem Status Onset Bipolar disorder Acute Delusional disorder Acute Gravely disabled Acute Schizoaffective disorder Acute Acute psychosis Acute Altered mental status Acute Overdose Acute
[2016-05-17] MEDS: NICOTINE POLACRILEX 2 MG GUM B PRN (12:53)
--- NOTE | 2016-05-17 14:13 | SOAPPROG ---
SOAP Progress Note Assessment/Plan: Assessment:Patient with bipolar disorder refused to talk with this typewriter mechanic, but she did answer basic questions. No current safety issues. She remains delusional with mood lability. She is compliant with medications at this time. Excessive amounts of sleep (11 to 14 hours a day). Plan: Continue medications and treatment. 05/02/16 18:02 05/02/16 18:10 05/02/16 18:11 05/03/16 12:25 05/03/16 12:29 05/16/16 14:08 05/16/16 14:11 05/16/16 14:15 05/17/16 14:09 Subjective: " Don't want to talk to you." She reports she is not suicidal or homicidal ( laughed after saying this). "I'm not even bipolar. I'm normal." Objective: Vital Signs Temp Pulse Resp BP Pulse Ox 36.6 C 94 12 110/58 L 92 04/15/16 10:02 04/15/16 10:02 04/15/16 10:02 04/15/16 10:02 04/15/16 10:02 female sitting in her room facing the window.Pleasant tone of voice. Dismissive. Mood- "Good, fantastic." Affect- bright. Denies Si/HI. Denies having a mental illness. - Time Spent With Patient Time Spent With Patient: 15 - Pending Discharge Pending Discharge Within 24 Hours: No Pending Discharge Within 48 Hours: No ICD10 Worksheet Patient Problems: Problems Problem Status Onset Bipolar disorder Acute Delusional disorder Acute Gravely disabled Acute Schizoaffective disorder Acute Acute psychosis Acute Altered mental status Acute Overdose Acute
[2016-05-17] MEDS: OLANZapine DISINTEGR 10 MG TAB PO SCH (18:06)
[2016-05-17] MEDS: OXcarbazepine 300 MG TAB PO SCH (18:10)
[2016-05-18] MEDS: NICOTINE POLACRILEX 2 MG GUM B PRN ×2 (13:19→14:32)
--- NOTE | 2016-05-18 13:58 | SOAPPROG ---
COLLIN Progress Note Assessment/Plan: Assessment: Plan: 05/18/16 13:43 DAY 34/40' UPDATE: 35 yo SWF with chronic recidivistic h/o c/w unstable SAD; last hospitalized [facility] 12/26/15 thru 01/25/16, stabilized slowly and dc'd too reutrn to [facility] and [facility] on meds regimen including Trileptal, Zyprexa, and depot Invega. Unfortunately againdid not c omply with rx contacts and medicatioons, decompensated progressively over a matter of few weeks prior to being brought to [facility] on M1 Hold and being readmitted to . since admission she's remained with residual psychotic acuity but has been showing some improvement over the past week, complying with po meds recently and continuing to comply with depot Invega which she's done since admission. DC plan when pt is ready is to DC to [facility] and [facility]. Seen several days ago by Dr Carreno and seen as not ready for DC. Her compliance with po meds recently has stopped the request initially activated to get Court approval for COM. ON EXAM: Pt presents as cooperative and conversant; evidences POS, grandiose delusional thought process; remains behaviorally intact and appropriate. States her readiness for DC and acknowledges she was "a little upset" whe she recently saw Dr. Carreno. She accepts that I will discuss her status with Dr Carreno and it is likely that he will want to see her again to reassess readiness for DC ASSESSMENT/PLAN; residual psychosis c/w slow-paced improvement/ no current change in meds referenced below; continue CP per d/w Nursing; call to Dr. Carreno pending Objective: Vital Signs Temp Pulse Resp BP Pulse Ox 36.6 C 94 12 110/58 L 92 04/15/16 10:02 04/15/16 10:02 04/15/16 10:02 04/15/16 10:02 04/15/16 10:02 ICD10 Worksheet Patient Problems: Problems Problem Status Onset Bipolar disorder Acute Delusional disorder Acute Gravely disabled Acute Schizoaffective disorder Acute Acute psychosis Acute Altered mental status Acute Overdose Acute
--- NOTE | 2016-05-18 14:01 | SOAPPROG ---
SOAP Progress Note Assessment/Plan: Assessment: Plan: 05/18/16 13:43 DAY 34/40' UPDATE: 35 yo SWF with chronic recidivistic h/o c/w unstable SAD; last hospitalized 3 12/26/15 thru 01/25/16, stabilized slowly and dc'd too reutrn to [facility] and [facility] on meds regimen including Trileptal, Zyprexa, and depot Invega. Unfortunately againdid not c omply with rx contacts and medicatioons, decompensated progressively over a matter of few weeks prior to being brought to [facility] on M1 Hold and being readmitted to . since admission she's remained with residual psychotic acuity but has been showing some improvement over the past week, complying with po meds recently and continuing to comply with depot Invega which she's done since admission. DC plan when pt is ready is to DC to [facility] and [facility]. Seen several days ago by Dr Carreno and seen as not ready for DC. Her compliance with po meds recently has stopped the request initially activated to get Court approval for COM. ON EXAM: Pt presents as cooperative and conversant; evidences POS, grandiose delusional thought process; remains behaviorally intact and appropriate. States her readiness for DC and acknowledges she was "a little upset" whe she recently saw Dr. Carreno. She accepts that I will discuss her status with Dr Carreno and it is likely that he will want to see her again to reassess readiness for DC ASSESSMENT/PLAN; residual psychosis c/w slow-paced improvement/ no current change in meds referenced below; continue CP per d/w Nursing; call to Dr. Carreno pending 05/18/16 13:59 Medications Generic Name Dose Route Start Last Admin Trade Name Freq PRN Reason Stop Dose Admin Olanzapine 20 mg 04/15/16 21:00 05/17/16 18:06 Zyprexa Zydis PO 10/12/16 20:59 20 mg HS ANSON Oxcarbazepine 900 mg 04/15/16 21:00 05/17/16 18:10 Trileptal PO 10/12/16 20:59 900 mg HS ANSON Olanzapine 10 mg 04/15/16 09:23 Zyprexa Zydis PO 10/12/16 09:22 Q4H PRN Agitation, Psychosis meds include depot Invega as ordered and po meds Objective: Vital Signs Temp Pulse Resp BP Pulse Ox 36.6 C 94 12 110/58 L 92 04/15/16 10:02 04/15/16 10:02 04/15/16 10:02 04/15/16 10:02 04/15/16 10:02 ICD10 Worksheet Patient Problems: Problems Problem Status Onset Bipolar disorder Acute Delusional disorder Acute Gravely disabled Acute Schizoaffective disorder Acute Acute psychosis Acute Altered mental status Acute Overdose Acute
[2016-05-18] MEDS: OLANZapine DISINTEGR 10 MG TAB PO SCH (19:44)
[2016-05-18] MEDS: OXcarbazepine 300 MG TAB PO SCH (19:44)
[2016-05-19] MEDS: NICOTINE POLACRILEX 2 MG GUM B PRN ×2 (10:49→12:28)
--- NOTE | 2016-05-19 12:52 | SOAPPROG ---
SOAP Progress Note Assessment/Plan: Assessment: Plan: 05/18/16 13:43 DAY 34/40' UPDATE: 35 yo SWF with chronic recidivistic h/o c/w unstable SAD; last hospitalized 3N 12/26/15 thru 01/25/16, stabilized slowly and dc'd to return to [facility] on meds regimen including Trileptal, Zyprexa, and depot Invega. Unfortunately again did not comply with rx contacts and medications, decompensated progressively over a matter of few weeks prior to being brought to [facility] on M1 Hold and being readmitted to . since admission she's remained with residual psychotic acuity but has been showing some improvement over the past week, complying with po meds recently and continuing to comply with depot Invega which she's done since admission. DC plan when pt is ready is to DC to [facility] and [facility]. Seen several days ago by Dr Carreno and seen as not ready for DC. Her compliance with po meds recently has stopped the request initially activated to get Court approval for COM. ON EXAM: Pt presents as cooperative and conversant; evidences POS, grandiose delusional thought process; remains behaviorally intact and appropriate. States her readiness for DC and acknowledges she was "a little upset" when she recently saw Dr. Carreno. She accepts that I will discuss her status with Dr Carreno and it is likely that he will want to see her again to reassess readiness for DC ASSESSMENT/PLAN; residual psychosis c/w slow-paced improvement/ no current change in meds referenced below; continue CP per d/w Nursing; call to Dr. Carreno pending 05/18/16 13:59 Medications Generic Name Dose Route Start Last Admin Trade Name Freq PRN Reason Stop Dose Admin Olanzapine 20 mg 04/15/16 21:00 05/17/16 18:06 Zyprexa Zydis PO 10/12/16 20:59 20 mg HS ANSON Oxcarbazepine 900 mg 04/15/16 21:00 05/17/16 18:10 Trileptal PO 10/12/16 20:59 900 mg HS ANSON Olanzapine 10 mg 04/15/16 09:23 Zyprexa Zydis PO 10/12/16 09:22 Q4H PRN Agitation, Psychosis meds include depot Invega as ordered and po meds 05/19/16 12:41 DAY' UPDATE: Nursing reports that pt remains labile, grandiose, slightly pressured; is c/w cares/meds and remains in behavioral control ON EXAM: presents similarly as described by Nursing; grandiose delusions remain but can manage a conversant mode; speech mild/moderately pressured; agrees to comply with updosing Zyprexa and Trileptal; understands that Dr Carreno is on a call-back and that no DC time-table is finalized - pt accepting of these understandings. ASSESSMENT/PLAN: residual affective/psychotic instability as referenced/ will increase Zyprexa to 30 mg hs and Trileptal to 600/900mg qd; will continue reintegrative CP Objective: Vital Signs Temp Pulse Resp BP Pulse Ox 36.6 C 68 12 98/61 L 99 05/19/16 10:37 05/19/16 10:37 04/15/16 10:02 05/19/16 10:37 05/19/16 10:37 ICD10 Worksheet Patient Problems: Problems Problem Status Onset Bipolar disorder Acute Delusional disorder Acute Gravely disabled Acute Schizoaffective disorder Acute Acute psychosis Acute Altered mental status Acute Overdose Acute
[2016-05-19] MEDS: OLANZapine DISINTEGR 10 MG TAB PO PRN (18:34)
[2016-05-19] MEDS: OXcarbazepine 300 MG TAB PO SCH (18:34)
[2016-05-19] MEDS: OLANZapine DISINTEGR 10 MG TAB PO SCH (20:17)
--- NOTE | 2016-05-20 08:21 | SOAPPROG ---
SOAP Progress Note Assessment/Plan: Assessment: Plan: 05/18/16 13:43 DAY 34/40' UPDATE: 35 yo SWF with chronic recidivistic h/o c/w unstable SAD; last hospitalized 3N 12/26/15 thru 01/25/16, stabilized slowly and dc'd to return to [facility] on meds regimen including Trileptal, Zyprexa, and depot Invega. Unfortunately again did not comply with rx contacts and medications, decompensated progressively over a matter of few weeks prior to being brought to [facility] on M1 Hold and being readmitted to . since admission she's remained with residual psychotic acuity but has been showing some improvement over the past week, complying with po meds recently and continuing to comply with depot Invega which she's done since admission. DC plan when pt is ready is to DC to [facility] and [facility]. Seen several days ago by Dr Carreno and seen as not ready for DC. Her compliance with po meds recently has stopped the request initially activated to get Court approval for COM. ON EXAM: Pt presents as cooperative and conversant; evidences POS, grandiose delusional thought process; remains behaviorally intact and appropriate. States her readiness for DC and acknowledges she was "a little upset" when she recently saw Dr. Carreno. She accepts that I will discuss her status with Dr Carreno and it is likely that he will want to see her again to reassess readiness for DC ASSESSMENT/PLAN; residual psychosis c/w slow-paced improvement/ no current change in meds referenced below; continue CP per d/w Nursing; call to Dr. Carreno pending 05/18/16 13:59 Medications Generic Name Dose Route Start Last Admin Trade Name Freq PRN Reason Stop Dose Admin Olanzapine 20 mg 04/15/16 21:00 05/17/16 18:06 Zyprexa Zydis PO 10/12/16 20:59 20 mg HS ANSON Oxcarbazepine 900 mg 04/15/16 21:00 05/17/16 18:10 Trileptal PO 10/12/16 20:59 900 mg HS ANSON Olanzapine 10 mg 04/15/16 09:23 Zyprexa Zydis PO 10/12/16 09:22 Q4H PRN Agitation, Psychosis meds include depot Invega as ordered and po meds 05/19/16 12:41 DAY' UPDATE: Nursing reports that pt remains labile, grandiose, slightly pressured; is c/w cares/meds and remains in behavioral control ON EXAM: presents similarly as described by Nursing; grandiose delusions remain but can manage a conversant mode; speech mild/moderately pressured; agrees to comply with updosing Zyprexa and Trileptal; understands that Dr Carreno is on a call-back and that no DC time-table is finalized - pt accepting of these understandings. ASSESSMENT/PLAN: residual affective/psychotic instability as referenced/ will increase Zyprexa to 30 mg hs and Trileptal to 600/900mg qd; will continue reintegrative CP 05/20/16 Objective: Vital Signs Temp Pulse Resp BP Pulse Ox 36.6 C 68 12 98/61 L 99 05/19/16 10:37 05/19/16 10:37 04/15/16 10:02 05/19/16 10:37 05/19/16 10:37 ICD10 Worksheet Patient Problems: Problems Problem Status Onset Bipolar disorder Acute Delusional disorder Acute Gravely disabled Acute Schizoaffective disorder Acute Acute psychosis Acute Altered mental status Acute Overdose Acute
[2016-05-20] MEDS: OXcarbazepine 300 MG TAB PO SCH ×2 (08:49→18:59)
--- NOTE | 2016-05-20 12:15 | SOAPPROG ---
SOAP Progress Note Assessment/Plan: Assessment: Plan: 05/18/16 13:43 DAY 34/40' UPDATE: 35 yo SWF with chronic recidivistic h/o c/w unstable SAD; last hospitalized 3N 12/26/15 thru 01/25/16, stabilized slowly and dc'd to return to [facility] on meds regimen including Trileptal, Zyprexa, and depot Invega. Unfortunately again did not comply with rx contacts and medications, decompensated progressively over a matter of few weeks prior to being brought to [facility] on M1 Hold and being readmitted to . since admission she's remained with residual psychotic acuity but has been showing some improvement over the past week, complying with po meds recently and continuing to comply with depot Invega which she's done since admission. DC plan when pt is ready is to DC to [facility] and [facility]. Seen several days ago by Dr De Los Santos and seen as not ready for DC. Her compliance with po meds recently has stopped the request initially activated to get Court approval for COM. ON EXAM: Pt presents as cooperative and conversant; evidences POS, grandiose delusional thought process; remains behaviorally intact and appropriate. States her readiness for DC and acknowledges she was "a little upset" when she recently saw Dr. De Los Santos. She accepts that I will discuss her status with Dr De Los Santos and it is likely that he will want to see her again to reassess readiness for DC ASSESSMENT/PLAN; residual psychosis c/w slow-paced improvement/ no current change in meds referenced below; continue CP per d/w Nursing; call to Dr. De Los Santos pending 05/18/16 13:59 Medications Generic Name Dose Route Start Last Admin Trade Name Freq PRN Reason Stop Dose Admin Olanzapine 20 mg 04/15/16 21:00 05/17/16 18:06 Zyprexa Zydis PO 10/12/16 20:59 20 mg HS ANSON Oxcarbazepine 900 mg 04/15/16 21:00 05/17/16 18:10 Trileptal PO 10/12/16 20:59 900 mg HS ANSON Olanzapine 10 mg 04/15/16 09:23 Zyprexa Zydis PO 10/12/16 09:22 Q4H PRN Agitation, Psychosis meds include depot Invega as ordered and po meds 05/19/16 12:41 DAY' UPDATE: Nursing reports that pt remains labile, grandiose, slightly pressured; is c/w cares/meds and remains in behavioral control ON EXAM: presents similarly as described by Nursing; grandiose delusions remain but can manage a conversant mode; speech mild/moderately pressured; agrees to comply with updosing Zyprexa and Trileptal; understands that Dr De Los Santos is on a call-back and that no DC time-table is finalized - pt accepting of these understandings. ASSESSMENT/PLAN: residual affective/psychotic instability as referenced/ will increase Zyprexa to 30 mg hs and Trileptal to 600/900mg qd; will continue reintegrative CP 05/20/16 12:04 DAY ' UPDATE: Nursing reports pt is somewhat calmer, less pressured and grandiose; she has not complied with the increased Zyprexa but is taking the increased dosing of Trileptal; continues to attend selective groups and is managing self- care. ON EXAM: initially refused to see me and had complained to Nursing that I was "overdosing " her; she did sit with me on the second attempt and remained in behavioral control, did present with some descriptive improvement as referenced by Nursing report above; was adamant about not taking the increased Zyprexa but would continue the Trileptal; I concretely described the need for the trial of Zyprexa as ordered and that she and I would monitor her response with the help of Nursing"s observations. She remained adamant and I reiterated the need for compliance and improvement to work thru to DC - finishing the session encouraging her to reconsider. Residual circumscribed delusional thought process present but pt did evidence affective improvement on the Trileptal increase. ASSESSMENT/PLAN: some improvement as noted/ no change in meds and will continue to encourage compliance directly and thru the CP as d/w Nursing; call-back from Dr de los santos remains pending; reintegrative CP continues Objective: Vital Signs Temp Pulse Resp BP Pulse Ox 36.6 C 68 12 98/61 L 99 05/19/16 10:37 05/19/16 10:37 04/15/16 10:02 05/19/16 10:37 05/19/16 10:37 ICD10 Worksheet Patient Problems: Problems Problem Status Onset Bipolar disorder Acute Delusional disorder Acute Gravely disabled Acute Schizoaffective disorder Acute Acute psychosis Acute Altered mental status Acute Overdose Acute
[2016-05-20] MEDS: NICOTINE POLACRILEX 2 MG GUM B PRN (13:26)
[2016-05-20] MEDS: OLANZapine DISINTEGR 10 MG TAB PO PRN (18:59)
[2016-05-20] MEDS: OLANZapine DISINTEGR 10 MG TAB PO SCH (19:07)
--- NOTE | 2016-05-21 08:42 | SOAPPROG ---
SOAP Progress Note Assessment/Plan: Assessment: Plan: 05/18/16 13:43 DAY 34/40' UPDATE: 35 yo SWF with chronic recidivistic h/o c/w unstable SAD; last hospitalized 3N 12/26/15 thru 01/25/16, stabilized slowly and dc'd to return to [facility] on meds regimen including Trileptal, Zyprexa, and depot Invega. Unfortunately again did not comply with rx contacts and medications, decompensated progressively over a matter of few weeks prior to being brought to [facility] on M1 Hold and being readmitted to . since admission she's remained with residual psychotic acuity but has been showing some improvement over the past week, complying with po meds recently and continuing to comply with depot Invega which she's done since admission. DC plan when pt is ready is to DC to [facility] and [facility]. Seen several days ago by Dr Carreno and seen as not ready for DC. Her compliance with po meds recently has stopped the request initially activated to get Court approval for COM. ON EXAM: Pt presents as cooperative and conversant; evidences POS, grandiose delusional thought process; remains behaviorally intact and appropriate. States her readiness for DC and acknowledges she was "a little upset" when she recently saw Dr. Carreno. She accepts that I will discuss her status with Dr Carreno and it is likely that he will want to see her again to reassess readiness for DC ASSESSMENT/PLAN; residual psychosis c/w slow-paced improvement/ no current change in meds referenced below; continue CP per d/w Nursing; call to Dr. Carreno pending 05/18/16 13:59 Medications Generic Name Dose Route Start Last Admin Trade Name Freq PRN Reason Stop Dose Admin Olanzapine 20 mg 04/15/16 21:00 05/17/16 18:06 Zyprexa Zydis PO 10/12/16 20:59 20 mg HS ANSON Oxcarbazepine 900 mg 04/15/16 21:00 05/17/16 18:10 Trileptal PO 10/12/16 20:59 900 mg HS ANSON Olanzapine 10 mg 04/15/16 09:23 Zyprexa Zydis PO 10/12/16 09:22 Q4H PRN Agitation, Psychosis meds include depot Invega as ordered and po meds 05/19/16 12:41 DAY' UPDATE: Nursing reports that pt remains labile, grandiose, slightly pressured; is c/w cares/meds and remains in behavioral control ON EXAM: presents similarly as described by Nursing; grandiose delusions remain but can manage a conversant mode; speech mild/moderately pressured; agrees to comply with updosing Zyprexa and Trileptal; understands that Dr Carreno is on a call-back and that no DC time-table is finalized - pt accepting of these understandings. ASSESSMENT/PLAN: residual affective/psychotic instability as referenced/ will increase Zyprexa to 30 mg hs and Trileptal to 600/900mg qd; will continue reintegrative CP 05/20/16 12:04 DAY ' UPDATE: Nursing reports pt is somewhat calmer, less pressured and grandiose; she has not complied with the increased Zyprexa but is taking the increased dosing of Trileptal; continues to attend selective groups and is managing self- care. ON EXAM: initially refused to see me and had complained to Nursing that I was "overdosing " her; she did sit with me on the second attempt and remained in behavioral control, did present with some descriptive improvement as referenced by Nursing report above; was adamant about not taking the increased Zyprexa but would continue the Trileptal; I concretely described the need for the trial of Zyprexa as ordered and that she and I would monitor her response with the help of Nursing"s observations. She remained adamant and I reiterated the need for compliance and improvement to work thru to DC - finishing the session encouraging her to reconsider. Residual circumscribed delusional thought process present but pt did evidence affective improvement on the Trileptal increase. ASSESSMENT/PLAN: some improvement as noted/ no change in meds and will continue to encourage compliance directly and thru the CP as d/w Nursing; call-back from Dr Carreno remains pending; reintegrative CP continues 05/21/16 DAY 37/ 40' UPDATE: Objective: Vital Signs Temp Pulse Resp BP Pulse Ox 36.6 C 68 12 98/61 L 99 05/19/16 10:37 05/19/16 10:37 04/15/16 10:02 05/19/16 10:37 05/19/16 10:37 ICD10 Worksheet Patient Problems: Problems Problem Status Onset Bipolar disorder Acute Delusional disorder Acute Gravely disabled Acute Schizoaffective disorder Acute Acute psychosis Acute Altered mental status Acute Overdose Acute
[2016-05-21] MEDS: OXcarbazepine 300 MG TAB PO SCH ×3 (10:12→18:55)
--- NOTE | 2016-05-21 12:35 | SOAPPROG ---
SOAP Progress Note Assessment/Plan: Assessment: Plan: 05/18/16 13:43 DAY 34/40' UPDATE: 35 yo SWF with chronic recidivistic h/o c/w unstable SAD; last hospitalized 3N 12/26/15 thru 01/25/16, stabilized slowly and dc'd to return to [facility] on meds regimen including Trileptal, Zyprexa, and depot Invega. Unfortunately again did not comply with rx contacts and medications, decompensated progressively over a matter of few weeks prior to being brought to [facility] on M1 Hold and being readmitted to . since admission she's remained with residual psychotic acuity but has been showing some improvement over the past week, complying with po meds recently and continuing to comply with depot Invega which she's done since admission. DC plan when pt is ready is to DC to [facility] and [facility]. Seen several days ago by Dr Carreno and seen as not ready for DC. Her compliance with po meds recently has stopped the request initially activated to get Court approval for COM. ON EXAM: Pt presents as cooperative and conversant; evidences POS, grandiose delusional thought process; remains behaviorally intact and appropriate. States her readiness for DC and acknowledges she was "a little upset" when she recently saw Dr. Carreno. She accepts that I will discuss her status with Dr Carreno and it is likely that he will want to see her again to reassess readiness for DC ASSESSMENT/PLAN; residual psychosis c/w slow-paced improvement/ no current change in meds referenced below; continue CP per d/w Nursing; call to Dr. Carreno pending 05/18/16 13:59 Medications Generic Name Dose Route Start Last Admin Trade Name Freq PRN Reason Stop Dose Admin Olanzapine 20 mg 04/15/16 21:00 05/17/16 18:06 Zyprexa Zydis PO 10/12/16 20:59 20 mg HS ANSON Oxcarbazepine 900 mg 04/15/16 21:00 05/17/16 18:10 Trileptal PO 10/12/16 20:59 900 mg HS ANSON Olanzapine 10 mg 04/15/16 09:23 Zyprexa Zydis PO 10/12/16 09:22 Q4H PRN Agitation, Psychosis meds include depot Invega as ordered and po meds 05/19/16 12:41 DAY 30' UPDATE: Nursing reports that pt remains labile, grandiose, slightly pressured; is c/w cares/meds and remains in behavioral control ON EXAM: presents similarly as described by Nursing; grandiose delusions remain but can manage a conversant mode; speech mild/moderately pressured; agrees to comply with updosing Zyprexa and Trileptal; understands that Dr Carreno is on a call-back and that no DC time-table is finalized - pt accepting of these understandings. ASSESSMENT/PLAN: residual affective/psychotic instability as referenced/ will increase Zyprexa to 30 mg hs and Trileptal to 600/900mg qd; will continue reintegrative CP 05/20/16 12:04 DAY 3635' UPDATE: Nursing reports pt is somewhat calmer, less pressured and grandiose; she has not complied with the increased Zyprexa but is taking the increased dosing of Trileptal; continues to attend selective groups and is managing self- care. ON EXAM: initially refused to see me and had complained to Nursing that I was "overdosing " her; she did sit with me on the second attempt and remained in behavioral control, did present with some descriptive improvement as referenced by Nursing report above; was adamant about not taking the increased Zyprexa but would continue the Trileptal; I concretely described the need for the trial of Zyprexa as ordered and that she and I would monitor her response with the help of Nursing"s observations. She remained adamant and I reiterated the need for compliance and improvement to work thru to DC - finishing the session encouraging her to reconsider. Residual circumscribed delusional thought process present but pt did evidence affective improvement on the Trileptal increase. ASSESSMENT/PLAN: some improvement as noted/ no change in meds and will continue to encourage compliance directly and thru the CP as d/w Nursing; call-back from Dr Carreno remains pending; reintegrative CP continues 05/21/16 DAY 37/ 40' UPDATE: Pt continues to evidence affective/psychotic instability as observed by Nursing a/w meds noncompliance; this AM refused Trileptal 600 and has only been taking Zyprexa 10 mg at night, not complying with the 30 mg hs as ordered. ON EXAM: Pt presents in behavioral control and loosely associated and grandiose ; organizes thought process with cuing and discusses her concerns about sedation on the higher Zyprexa dose; agrees to take the 30 mg with moving dose to 1900 qd and to resume compliance wtih the Trileptal total dosing 1500 mg qd; I again reinforced the disposition to [facility] and CR remains available with further improvement and meds compliance ASSESSMENT/PLAN: residual instability as referenced/ will review case and discuss re-activating COM with Dr. Trent; case reviewed yesterday PM with Dr. Carreno who continues to hold open DC plan when pt improved; care plan review with Nursing focussing on meds compliance Objective: Vital Signs Temp Pulse Resp BP Pulse Ox 36.6 C 68 12 98/61 L 99 05/19/16 10:37 05/19/16 10:37 04/15/16 10:02 05/19/16 10:37 05/19/16 10:37 ICD10 Worksheet Patient Problems: Problems Problem Status Onset Bipolar disorder Acute Delusional disorder Acute Gravely disabled Acute Schizoaffective disorder Acute Acute psychosis Acute Altered mental status Acute Overdose Acute
[2016-05-21] MEDS: OLANZapine DISINTEGR 10 MG TAB PO PRN (18:54)
[2016-05-21] MEDS ORDERED: OLANZapine DISINTEGR 10 MG TAB PO SCH (19:00)
--- NOTE | 2016-05-22 06:38 | SOAPPROG ---
SOAP Progress Note Assessment/Plan: Assessment: Plan: 05/18/16 13:43 DAY 34/40' UPDATE: 35 yo SWF with chronic recidivistic h/o c/w unstable SAD; last hospitalized 3N 12/26/15 thru 01/25/16, stabilized slowly and dc'd to return to [facility] on meds regimen including Trileptal, Zyprexa, and depot Invega. Unfortunately again did not comply with rx contacts and medications, decompensated progressively over a matter of few weeks prior to being brought to [facility] on M1 Hold and being readmitted to . since admission she's remained with residual psychotic acuity but has been showing some improvement over the past week, complying with po meds recently and continuing to comply with depot Invega which she's done since admission. DC plan when pt is ready is to DC to [facility] and [facility]. Seen several days ago by Dr Carreno and seen as not ready for DC. Her compliance with po meds recently has stopped the request initially activated to get Court approval for COM. ON EXAM: Pt presents as cooperative and conversant; evidences POS, grandiose delusional thought process; remains behaviorally intact and appropriate. States her readiness for DC and acknowledges she was "a little upset" when she recently saw Dr. Carreno. She accepts that I will discuss her status with Dr Carreno and it is likely that he will want to see her again to reassess readiness for DC ASSESSMENT/PLAN; residual psychosis c/w slow-paced improvement/ no current change in meds referenced below; continue CP per d/w Nursing; call to Dr. Carreno pending 05/18/16 13:59 Medications Generic Name Dose Route Start Last Admin Trade Name Freq PRN Reason Stop Dose Admin Olanzapine 20 mg 04/15/16 21:00 05/17/16 18:06 Zyprexa Zydis PO 10/12/16 20:59 20 mg HS ANSON Oxcarbazepine 900 mg 04/15/16 21:00 05/17/16 18:10 Trileptal PO 10/12/16 20:59 900 mg HS ANSON Olanzapine 10 mg 04/15/16 09:23 Zyprexa Zydis PO 10/12/16 09:22 Q4H PRN Agitation, Psychosis meds include depot Invega as ordered and po meds 05/19/16 12:41 DAY 30' UPDATE: Nursing reports that pt remains labile, grandiose, slightly pressured; is c/w cares/meds and remains in behavioral control ON EXAM: presents similarly as described by Nursing; grandiose delusions remain but can manage a conversant mode; speech mild/moderately pressured; agrees to comply with updosing Zyprexa and Trileptal; understands that Dr Carreno is on a call-back and that no DC time-table is finalized - pt accepting of these understandings. ASSESSMENT/PLAN: residual affective/psychotic instability as referenced/ will increase Zyprexa to 30 mg hs and Trileptal to 600/900mg qd; will continue reintegrative CP 05/20/16 12:04 DAY 3635' UPDATE: Nursing reports pt is somewhat calmer, less pressured and grandiose; she has not complied with the increased Zyprexa but is taking the increased dosing of Trileptal; continues to attend selective groups and is managing self- care. ON EXAM: initially refused to see me and had complained to Nursing that I was "overdosing " her; she did sit with me on the second attempt and remained in behavioral control, did present with some descriptive improvement as referenced by Nursing report above; was adamant about not taking the increased Zyprexa but would continue the Trileptal; I concretely described the need for the trial of Zyprexa as ordered and that she and I would monitor her response with the help of Nursing"s observations. She remained adamant and I reiterated the need for compliance and improvement to work thru to DC - finishing the session encouraging her to reconsider. Residual circumscribed delusional thought process present but pt did evidence affective improvement on the Trileptal increase. ASSESSMENT/PLAN: some improvement as noted/ no change in meds and will continue to encourage compliance directly and thru the CP as d/w Nursing; call-back from Dr Carreno remains pending; reintegrative CP continues 05/21/16 DAY 37/ 40' UPDATE: Pt continues to evidence affective/psychotic instability as observed by Nursing a/w meds noncompliance; this AM refused Trileptal 600 and has only been taking Zyprexa 10 mg at night, not complying with the 30 mg hs as ordered. ON EXAM: Pt presents in behavioral control and loosely associated and grandiose ; organizes thought process with cuing and discusses her concerns about sedation on the higher Zyprexa dose; agrees to take the 30 mg with moving dose to 1900 qd and to resume compliance wtih the Trileptal total dosing 1500 mg qd; I again reinforced the disposition to [facility] and CR remains available with further improvement and meds compliance ASSESSMENT/PLAN: residual instability as referenced/ will review case and discuss re-activating COM with Dr. Trent; case reviewed yesterday PM with Dr. Carreno who continues to hold open DC plan when pt improved; care plan review with Nursing focussing on meds compliance 05/22/16 06:36 DAY' UPDATE: Objective: Vital Signs Temp Pulse Resp BP Pulse Ox 36.6 C 68 12 98/61 L 99 05/19/16 10:37 05/19/16 10:37 04/15/16 10:02 05/19/16 10:37 05/19/16 10:37 ICD10 Worksheet Patient Problems: Problems Problem Status Onset Bipolar disorder Acute Delusional disorder Acute Gravely disabled Acute Schizoaffective disorder Acute Acute psychosis Acute Altered mental status Acute Overdose Acute
[2016-05-22] MEDS: OXcarbazepine 300 MG TAB PO SCH ×2 (08:52→19:12)
--- NOTE | 2016-05-22 08:53 | SOAPPROG ---
SOAP Progress Note Assessment/Plan: Assessment: Plan: 05/18/16 13:43 DAY 34/40' UPDATE: 35 yo SWF with chronic recidivistic h/o c/w unstable SAD; last hospitalized 3N 12/26/15 thru 01/25/16, stabilized slowly and dc'd to return to [facility] on meds regimen including Trileptal, Zyprexa, and depot Invega. Unfortunately again did not comply with rx contacts and medications, decompensated progressively over a matter of few weeks prior to being brought to [facility] on M1 Hold and being readmitted to . since admission she's remained with residual psychotic acuity but has been showing some improvement over the past week, complying with po meds recently and continuing to comply with depot Invega which she's done since admission. DC plan when pt is ready is to DC to [facility] and [facility]. Seen several days ago by Dr Carrneo and seen as not ready for DC. Her compliance with po meds recently has stopped the request initially activated to get Court approval for COM. ON EXAM: Pt presents as cooperative and conversant; evidences POS, grandiose delusional thought process; remains behaviorally intact and appropriate. States her readiness for DC and acknowledges she was "a little upset" when she recently saw Dr. Carreno. She accepts that I will discuss her status with Dr Carreno and it is likely that he will want to see her again to reassess readiness for DC ASSESSMENT/PLAN; residual psychosis c/w slow-paced improvement/ no current change in meds referenced below; continue CP per d/w Nursing; call to Dr. Carreno pending 05/18/16 13:59 Medications Generic Name Dose Route Start Last Admin Trade Name Freq PRN Reason Stop Dose Admin Olanzapine 20 mg 04/15/16 21:00 05/17/16 18:06 Zyprexa Zydis PO 10/12/16 20:59 20 mg HS ANSON Oxcarbazepine 900 mg 04/15/16 21:00 05/17/16 18:10 Trileptal PO 10/12/16 20:59 900 mg HS ANSON Olanzapine 10 mg 04/15/16 09:23 Zyprexa Zydis PO 10/12/16 09:22 Q4H PRN Agitation, Psychosis meds include depot Invega as ordered and po meds 05/19/16 12:41 DAY 30' UPDATE: Nursing reports that pt remains labile, grandiose, slightly pressured; is c/w cares/meds and remains in behavioral control ON EXAM: presents similarly as described by Nursing; grandiose delusions remain but can manage a conversant mode; speech mild/moderately pressured; agrees to comply with updosing Zyprexa and Trileptal; understands that Dr Carreno is on a call-back and that no DC time-table is finalized - pt accepting of these understandings. ASSESSMENT/PLAN: residual affective/psychotic instability as referenced/ will increase Zyprexa to 30 mg hs and Trileptal to 600/900mg qd; will continue reintegrative CP 05/20/16 12:04 DAY 3635' UPDATE: Nursing reports pt is somewhat calmer, less pressured and grandiose; she has not complied with the increased Zyprexa but is taking the increased dosing of Trileptal; continues to attend selective groups and is managing self- care. ON EXAM: initially refused to see me and had complained to Nursing that I was "overdosing " her; she did sit with me on the second attempt and remained in behavioral control, did present with some descriptive improvement as referenced by Nursing report above; was adamant about not taking the increased Zyprexa but would continue the Trileptal; I concretely described the need for the trial of Zyprexa as ordered and that she and I would monitor her response with the help of Nursing"s observations. She remained adamant and I reiterated the need for compliance and improvement to work thru to DC - finishing the session encouraging her to reconsider. Residual circumscribed delusional thought process present but pt did evidence affective improvement on the Trileptal increase. ASSESSMENT/PLAN: some improvement as noted/ no change in meds and will continue to encourage compliance directly and thru the CP as d/w Nursing; call-back from Dr Carreno remains pending; reintegrative CP continues 05/21/16 DAY 37/ 40' UPDATE: Pt continues to evidence affective/psychotic instability as observed by Nursing a/w meds noncompliance; this AM refused Trileptal 600 and has only been taking Zyprexa 10 mg at night, not complying with the 30 mg hs as ordered. ON EXAM: Pt presents in behavioral control and loosely associated and grandiose ; organizes thought process with cuing and discusses her concerns about sedation on the higher Zyprexa dose; agrees to take the 30 mg with moving dose to 1900 qd and to resume compliance wtih the Trileptal total dosing 1500 mg qd; I again reinforced the disposition to [facility] and CR remains available with further improvement and meds compliance ASSESSMENT/PLAN: residual instability as referenced/ will review case and discuss re-activating COM with Dr. Trent; case reviewed yesterday PM with Dr. Carreno who continues to hold open DC plan when pt improved; care plan review with Nursing focussing on meds compliance 05/22/16 06:36 DAY' UPDATE: Nursing reports pt has been in relative control over last 24 hours but continues to resist taking updosed Zyprexa - did comply with Trileptal at 1500 mg qd; reviewed case with Dr Trent this AM and he states pt will likely concur again with the 20 mg dosing but any above that she has and will resist. He agrees with the current increased Trileptal regimen. He will resume her care on 05/25 and work thru the issue of dispositional planning and any further consideration of COM. ON EXAM: pt presents today as calmer, cooperative, conversant; distorted prepychotic/psychotic thought pattern persists but less lability and maintains good behavioral control. Agrees to resume the Zyprexa 20 mg hs and continue the Trileptal as currently dosed. We again discuss DC planning which is a preoccupation with this patient Responds well to reintegrative support in this session. ASSESSMENT/PLAN: residual psychosis; affectively slightly more stable on observation in session and per report/ decrease Zyprexa to 200 mg hs; continue reintegrative CP per d/w Nursing Objective: Vital Signs Temp Pulse Resp BP Pulse Ox 36.6 C 68 12 98/61 L 99 05/19/16 10:37 05/19/16 10:37 04/15/16 10:02 05/19/16 10:37 05/19/16 10:37 ICD10 Worksheet Patient Problems: Problems Problem Status Onset Bipolar disorder Acute Delusional disorder Acute Gravely disabled Acute Schizoaffective disorder Acute Acute psychosis Acute Altered mental status Acute Overdose Acute
[2016-05-22] MEDS: OLANZapine DISINTEGR 10 MG TAB PO SCH (19:12)
[2016-05-23] MEDS: OXcarbazepine 300 MG TAB PO SCH ×3 (10:38→19:14)
[2016-05-23] MEDS: NICOTINE POLACRILEX 2 MG GUM B PRN ×2 (12:52→16:49)
--- NOTE | 2016-05-23 17:46 | SOAPPROG ---
SOAP Progress Note Assessment/Plan: Assessment:Patient with bipolar disorder refused to talk with this technical proposal writer. She did approach this technical proposal writer later, and she stated she would talk to this technical proposal writer tomorrow. No current safety issues. She remains delusional with mood lability. She is compliant with medications at this time. Excessive amounts of sleep (11 to 14 hours a day). Plan: Continue medications and treatment. 05/02/16 18:02 05/02/16 18:10 05/02/16 18:11 05/03/16 12:25 05/03/16 12:29 05/16/16 14:08 05/16/16 14:11 05/16/16 14:15 05/17/16 14:09 05/23/16 17:42 05/23/16 17:45 Subjective: "I don't need you. Thank you." Objective: Vital Signs Temp Pulse Resp BP Pulse Ox 36.6 C 68 12 98/61 L 99 05/19/16 10:37 05/19/16 10:37 04/15/16 10:02 05/19/16 10:37 05/19/16 10:37 female sitting on the side of her bed facing the window. Poor eye contact. Mood- irritable. Affect- Not visible. thought Process- Guarded. Thought Content - No SI/HI. Insight and Judgment - poor. - Time Spent With Patient Time Spent With Patient: 15 - Pending Discharge Pending Discharge Within 24 Hours: No Pending Discharge Within 48 Hours: No ICD10 Worksheet Patient Problems: Problems Problem Status Onset Bipolar disorder Acute Delusional disorder Acute Gravely disabled Acute Schizoaffective disorder Acute Acute psychosis Acute Altered mental status Acute Overdose Acute
[2016-05-23] MEDS: OLANZapine DISINTEGR 10 MG TAB PO SCH (20:35)
[2016-05-24] MEDS: OXcarbazepine 300 MG TAB PO SCH ×2 (09:23→19:07)
--- NOTE | 2016-05-24 16:07 | SOAPPROG ---
SOAP Progress Note Assessment/Plan: Assessment:Patient with bipolar disorder refusing to talk with this check writer salesperson. She will approach this check writer salesperson later in the day to tell this check writer salesperson she will talk the next day, but she never falls through on this. She is now complaint with her current medications. She continues to sleep a lot. She does not go to groups. She continues to have poor boundaries especially with male peers. She continues to be delusional. Plan: Continue medications and treatment. Encourage groups. 05/02/16 18:02 05/02/16 18:10 05/02/16 18:11 05/03/16 12:25 05/03/16 12:29 05/16/16 14:08 05/16/16 14:11 05/16/16 14:15 05/17/16 14:09 05/23/16 17:42 05/23/16 17:45 05/24/16 16:04 Subjective: Response to being asked to talk to this check writer salesperson, "I can't I'm sorry." Objective: Vital Signs Temp Pulse Resp BP Pulse Ox 36.6 C 68 12 98/61 L 99 05/19/16 10:37 05/19/16 10:37 04/15/16 10:02 05/19/16 10:37 05/19/16 10:37 Dismissive. Laughs inappropriately at times. Frequently claps her hands for unknown reasons. Not reporting any SI/H/AH/VH. +grandiose delusions. - Time Spent With Patient Time Spent With Patient: 15 ICD10 Worksheet Patient Problems: Problems Problem Status Onset Bipolar disorder Acute Delusional disorder Acute Gravely disabled Acute Schizoaffective disorder Acute Acute psychosis Acute Altered mental status Acute Overdose Acute
[2016-05-24] MEDS: OLANZapine DISINTEGR 10 MG TAB PO SCH (19:08)
[2016-05-25] MEDS: OXcarbazepine 300 MG TAB PO SCH ×2 (09:02→21:16)
--- NOTE | 2016-05-25 14:49 | SOAPPROG ---
SOAP Progress Note Assessment/Plan: Assessment: Plan: 04/19/16 22:58 Remains manic and psychotic. Need COM if she is to stabilize.. 04/20/16 18:57 REmains manic. Needs additional PO meds. Will petition court. 04/21/16 17:34 Improving but history indicates she will not improve adequate to provide for safe d/c without PO meds. Will [facility], petition for involuntary meds. 04/23/16 07:59 Remains elevated, though coop. Will [facility]. 04/23/16 16:02 More irritable today. She continues to resist PO meds but is happy to accept IM. Will discuss with Dr. Goodwin the utility in seeking an order for PO meds as she is correct that we cannot give them to her against her will. Although Zyprexa is available in a long-acting injectable, I will not give it with [facility] due to safety concerns. 04/24/16 22:30 CCM. 04/28/16 17:48 Pt remains psychotic. Sleeping well, less irritable, less pressured. Her current symptomology is consistent with the thought disorder component of her illness. Will [facility]. Continue d/c planning. Will put our support behind [facility]. 04/29/16 18:11 No interval change. [facility]. 04/30/16 15:56 Is approaching baseline. REmains delusional and likely unable to care for herself due to ongoing psychosis. Need d/c plan. 05/01/16 15:16 No interval change. Remains delusional. [facility]. Will investigate this friend. 05/04/16 14:19 Improved. Will [facility]. Continue d/c planning. I agree with plan for /[facility]. 05/05/16 17:24 Remains delusional and intermittently elevated. I believe she appropriate for [facility]. Await opinion from Dr. Carreno. 05/06/16 11:55 On a tangent today re: [facility]. Our previous information was that they had terminated services with her. Will [facility], monitor behaviors and disposition. 05/07/16 16:30 Remains tenuous. Unclear whether she would be able to conform her behaviors at [facility]. Will discuss with Dr. Carreno, [facility]. 05/08/16 12:45 Remains agitated, psychotic, elevated. Dr. Carreno wants her to take a mood stabilizer which I agree with. WIll proceed with COM petition. 05/11/16 14:39 Remains agitated, threatening at times, pressured and delusional. She has very little insight into illness and is clearly gravely disabled. Will [facility], petition for COM. 05/12/16 17:47 No interval change. Pt now taking PO meds. Will hold on COM. 05/13/16 12:50 Remains elevated, delusional. [facility]. Await reevaluation by Dr. Carreno. 05/14/16 14:52 No significant change. Day #4 of compliance with PO meds. [facility]. 05/17/16 10:17 Slow improvement with PO meds. [facility]. 05/25/16 14:49 Improved over last encounter. [facility]. Subjective: Pt seen, discussed with staff, chart reviewed. She reports being "totally well " and states the plan was to send her to [place] on the bus today. Team discussed her going to [facility]. She is not accepting of this at first and then later states, "You promise I will go by Wednesday." I reiterated that I do not make admission decisions for CR but will send her when they will accept her. She is compliant again with Zyprexa at 20mg and Trileptal at 1500mg. Objective: Vital Signs Temp Pulse Resp BP Pulse Ox 36.6 C 68 12 98/61 L 99 05/19/16 10:37 05/19/16 10:37 04/15/16 10:02 05/19/16 10:37 05/19/16 10:37 MSE: Calm throughout interview with me. Noted to be agitated and yelling later with CC. Affect is expansive, but more stable than on last encounter. Mood is "great." TP wanders but less tangential. TC reveals continued familiar delusional systems though much less pressing. She asks at one point, "Do I really have a ?" - Time Spent With Patient Time Spent With Patient: 25" - Pending Discharge Pending Discharge Within 24 Hours: No Pending Discharge Within 48 Hours: No ICD10 Worksheet Patient Problems: Problems Problem Status Onset Bipolar disorder Acute Delusional disorder Acute Gravely disabled Acute Schizoaffective disorder Acute Acute psychosis Acute Altered mental status Acute Overdose Acute
[2016-05-25] MEDS: OLANZapine DISINTEGR 10 MG TAB PO SCH (21:16)
[2016-05-26] MEDS: OXcarbazepine 300 MG TAB PO SCH ×4 (08:52→17:17)
--- NOTE | 2016-05-26 17:12 | SOAPPROG ---
SOAP Progress Note Assessment/Plan: Assessment: Plan: 04/19/16 22:58 Remains manic and psychotic. Need COM if she is to stabilize.. 04/20/16 18:57 REmains manic. Needs additional PO meds. Will petition court. 04/21/16 17:34 Improving but history indicates she will not improve adequate to provide for safe d/c without PO meds. Will [facility], petition for involuntary meds. 04/23/16 07:59 Remains elevated, though coop. Will [facility]. 04/23/16 16:02 More irritable today. She continues to resist PO meds but is happy to accept IM. Will discuss with Dr. Goodwin the utility in seeking an order for PO meds as she is correct that we cannot give them to her against her will. Although Zyprexa is available in a long-acting injectable, I will not give it with [facility] due to safety concerns. 04/24/16 22:30 CCM. 04/28/16 17:48 Pt remains psychotic. Sleeping well, less irritable, less pressured. Her current symptomology is consistent with the thought disorder component of her illness. Will [facility]. Continue d/c planning. Will put our support behind [facility]. 04/29/16 18:11 No interval change. [facility]. 04/30/16 15:56 Is approaching baseline. REmains delusional and likely unable to care for herself due to ongoing psychosis. Need d/c plan. 05/01/16 15:16 No interval change. Remains delusional. [facility]. Will investigate this friend. 05/04/16 14:19 Improved. Will [facility]. Continue d/c planning. I agree with plan for /[facility]. 05/05/16 17:24 Remains delusional and intermittently elevated. I believe she appropriate for [facility]. Await opinion from Dr. Carreno. 05/06/16 11:55 On a tangent today re: [facility]. Our previous information was that they had terminated services with her. Will [facility], monitor behaviors and disposition. 05/07/16 16:30 Remains tenuous. Unclear whether she would be able to conform her behaviors at [facility]. Will discuss with Dr. Carreno, [facility]. 05/08/16 12:45 Remains agitated, psychotic, elevated. Dr. Carreno wants her to take a mood stabilizer which I agree with. WIll proceed with COM petition. 05/11/16 14:39 Remains agitated, threatening at times, pressured and delusional. She has very little insight into illness and is clearly gravely disabled. Will [facility], petition for COM. 05/12/16 17:47 No interval change. Pt now taking PO meds. Will hold on COM. 05/13/16 12:50 Remains elevated, delusional. [facility]. Await reevaluation by Dr. Carreno. 05/14/16 14:52 No significant change. Day #4 of compliance with PO meds. [facility]. 05/17/16 10:17 Slow improvement with PO meds. [facility]. 05/25/16 14:49 Improved over last encounter. [facility]. 05/26/16 17:11 Continued overall improvement. Manic sx's are significantly better with increased Trileptal. [facility]. Subjective: Pt seen, discussed with staff. Angry with me, but won't say why. Refuses to speak to me until afternoon. 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 I deserve respect. I appealed to her to show respect for herself and Dr. Wai ham when he visits to interview her. I emphasized that her next step is up to her and that she needs to calm down and be polite. Seen later sitting in day room hugging knees to chest sitting quiety. Objective: Vital Signs Temp Pulse Resp BP Pulse Ox 36.6 C 68 12 98/61 L 99 05/19/16 10:37 05/19/16 10:37 04/15/16 10:02 05/19/16 10:37 05/19/16 10:37 - Time Spent With Patient Time Spent With Patient: 25" ICD10 Worksheet Patient Problems: Problems Problem Status Onset Bipolar disorder Acute Delusional disorder Acute Gravely disabled Acute Schizoaffective disorder Acute Acute psychosis Acute Altered mental status Acute Overdose Acute
[2016-05-26] MEDS: OLANZapine DISINTEGR 10 MG TAB PO SCH (17:18)
[2016-05-27] MEDS: OXcarbazepine 300 MG TAB PO SCH ×2 (10:44→18:22)
[2016-05-27] MEDS: OLANZapine DISINTEGR 10 MG TAB PO SCH (18:22)
--- NOTE | 2016-05-27 18:57 | SOAPPROG ---
SOAP Progress Note Assessment/Plan: Assessment: Plan: 04/19/16 22:58 Remains manic and psychotic. Need COM if she is to stabilize.. 04/20/16 18:57 REmains manic. Needs additional PO meds. Will petition court. 04/21/16 17:34 Improving but history indicates she will not improve adequate to provide for safe d/c without PO meds. Will [facility], petition for involuntary meds. 04/23/16 07:59 Remains elevated, though coop. Will [facility]. 04/23/16 16:02 More irritable today. She continues to resist PO meds but is happy to accept IM. Will discuss with Dr. Goodwin the utility in seeking an order for PO meds as she is correct that we cannot give them to her against her will. Although Zyprexa is available in a long-acting injectable, I will not give it with Sustenna due to safety concerns. 04/24/16 22:30 CCM. 04/28/16 17:48 Pt remains psychotic. Sleeping well, less irritable, less pressured. Her current symptomology is consistent with the thought disorder component of her illness. Will [facility]. Continue d/c planning. Will put our support behind [facility]. 04/29/16 18:11 No interval change. [facility]. 04/30/16 15:56 Is approaching baseline. REmains delusional and likely unable to care for herself due to ongoing psychosis. Need d/c plan. 05/01/16 15:16 No interval change. Remains delusional. [facility]. Will investigate this friend. 05/04/16 14:19 Improved. Will [facility]. Continue d/c planning. I agree with plan for /[facility]. 05/05/16 17:24 Remains delusional and intermittently elevated. I believe she appropriate for [facility]. Await opinion from Dr. Carreno. 05/06/16 11:55 On a tangent today re: [facility]. Our previous information was that they had terminated services with her. Will [facility], monitor behaviors and disposition. 05/07/16 16:30 Remains tenuous. Unclear whether she would be able to conform her behaviors at [facility]. Will discuss with Dr. Carreno, [facility]. 05/08/16 12:45 Remains agitated, psychotic, elevated. Dr. Carreno wants her to take a mood stabilizer which I agree with. WIll proceed with COM petition. 05/11/16 14:39 Remains agitated, threatening at times, pressured and delusional. She has very little insight into illness and is clearly gravely disabled. Will [facility], petition for COM. 05/12/16 17:47 No interval change. Pt now taking PO meds. Will hold on COM. 05/13/16 12:50 Remains elevated, delusional. [facility]. Await reevaluation by Dr. Carreno. 05/14/16 14:52 No significant change. Day #4 of compliance with PO meds. [facility]. 05/17/16 10:17 Slow improvement with PO meds. [facility]. 05/25/16 14:49 Improved over last encounter. [facility]. 05/26/16 17:11 Continued overall improvement. Manic sx's are significantly better with increased Trileptal. [facility]. 05/27/16 18:59 REmains quite ill. Hope to see further progress with continued compliance. Subjective: Pt seen, discussed with staff. Reports feeling "terrible." Angry, demanding, labile, irritable. 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 Compliant with meds today. Dr. Carreno is to see her this afternoon. Objective: Vital Signs Temp Pulse Resp BP Pulse Ox 36.6 C 68 12 98/61 L 99 05/19/16 10:37 05/19/16 10:37 04/15/16 10:02 05/19/16 10:37 05/19/16 10:37 MSE: Angry, impulsive. Pounds loudly on my door twice while I am on the phone. Able to verbally redirect. Affect is labile, irritable. Mood is "terrible." TP linear for longer periods before derailment into delusional systems. TC reveals continued familiar delusional systems. - Time Spent With Patient Time Spent With Patient: 15" - Pending Discharge Pending Discharge Within 24 Hours: No Pending Discharge Within 48 Hours: No ICD10 Worksheet Patient Problems: Problems Problem Status Onset Bipolar disorder Acute Delusional disorder Acute Gravely disabled Acute Schizoaffective disorder Acute Acute psychosis Acute Altered mental status Acute Overdose Acute
[2016-05-28] MEDS: OXcarbazepine 300 MG TAB PO SCH ×2 (11:29→20:39)
--- NOTE | 2016-05-28 14:52 | SOAPPROG ---
SOAP Progress Note Assessment/Plan: Assessment: 35yo CF with schizoaffective d/o admitted in manic state with delusions in context of recurrent med noncompliance, now taking po meds with more stabilized mood although seems still somewhat hypomanic, but continues with delusions. 05/28/16 14:46 Per staff, slept 10hr. Staff report recent concerns for internal stimuli, including talking to herself as if in conversation when no one around, and mumbling/muttering to herself at times. On interview, casually dressed, over-dressed with winter coat and hat on. some hirsutism noted on chin and upper lip. pt initially engaging, with nml speech rate/vol, good eye contact and talkative but not pressured. Reports she has figured out her family, and uses some profanities to describe each member, and continues to express some grandiose delusions. Did not appear responding to internal stimuli and voiced no si/hi. I/J both poor. Cognition seemed conversationally intact and patient was alert/oriented to place, time, person. Pt abruptly terminated interview after was asked to have labs checked before d/ c. "you're not my doctor". Denied any med s/e, states she has been taking meds as Rxd and plans to d/c to [facility] on 06/[address] Carreno [facility] psychiatrist yesterday, who felt she was improved. Pt refused offer to check labs before d/c, despite informed that Trileptal can cause hyponatremia. PLAN: continue current meds as ordered. will order basic Chem panel for tomorrow AM and encourage pt to comply cont to monitor for responding to int stim cont STC 05/28/16 14:55 Objective: Vital Signs Temp Pulse Resp BP Pulse Ox 36.6 C 68 12 98/61 L 99 05/19/16 10:37 05/19/16 10:37 04/15/16 10:02 05/19/16 10:37 05/19/16 10:37 Medications Generic Name Dose Route Start Last Admin Trade Name Freq PRN Reason Stop Dose Admin Olanzapine 10 mg 04/15/16 09:23 05/21/16 18:54 Zyprexa Zydis PO 10/12/16 09:22 10 mg Q4H PRN Agitation, Psychosis Lorazepam 0.5 - 1 mg 04/15/16 09:23 Ativan PO 10/12/16 09:22 Q6HRS PRN Anxiety, Able to Take PO Nicotine Polacrilex 2 mg 04/15/16 09:23 05/23/16 16:49 Nicorette B 10/12/16 09:22 2 mg Q1HR PRN Nicotine withdrawal Olanzapine 20 mg 05/22/16 21:00 05/27/16 18:22 Zyprexa Zydis PO 11/18/16 20:59 20 mg HS ANSON Oxcarbazepine 900 mg 04/15/16 21:00 05/27/16 18:22 Trileptal PO 10/12/16 20:59 900 mg HS ANSON Oxcarbazepine 600 mg 05/20/16 09:00 05/28/16 11:29 Trileptal PO 11/16/16 08:59 600 mg DAILY ANSON - Time Spent With Patient Time Spent With Patient: 15min - Pending Discharge Pending Discharge Within 24 Hours: No Pending Discharge Within 48 Hours: No ICD10 Worksheet Patient Problems: Problems Problem Status Onset Bipolar disorder Acute Delusional disorder Acute Gravely disabled Acute Schizoaffective disorder Acute Acute psychosis Acute Altered mental status Acute Overdose Acute
[2016-05-28] MEDS: OLANZapine DISINTEGR 10 MG TAB PO SCH (20:40)
[2016-05-29] MEDS: OXcarbazepine 300 MG TAB PO SCH ×2 (10:42→19:58)
--- NOTE | 2016-05-29 13:48 | SOAPPROG ---
SOAP Progress Note Assessment/Plan: Assessment: 35yo CF with schizoaffective d/o admitted in manic state with delusions in context of recurrent med noncompliance, now taking po meds with more stabilized mood although seems still somewhat hypomanic, but continues with delusions. 05/28/16 14:46 Per staff, slept 10hr. Staff report recent concerns for internal stimuli, including talking to herself as if in conversation when no one around, and mumbling/muttering to herself at times. On interview, casually dressed, over-dressed with winter coat and hat on. some hirsutism noted on chin and upper lip. pt initially engaging, with nml speech rate/vol, good eye contact and talkative but not pressured. Reports she has figured out her family, and uses some profanities to describe each member, and continues to express some grandiose delusions. Did not appear responding to internal stimuli and voiced no si/hi. I/J both poor. Cognition seemed conversationally intact and patient was alert/oriented to place, time, person. Pt abruptly terminated interview after was asked to have labs checked before d/ c. "you're not my doctor". Denied any med s/e, states she has been taking meds as Rxd and plans to d/c to [facility] on 06/[address] Carreno [facility] psychiatrist yesterday, who felt she was improved. Pt refused offer to check labs before d/c, despite informed that Trileptal can cause hyponatremia. PLAN: continue current meds as ordered. will order basic Chem panel for tomorrow AM and encourage pt to comply cont to monitor for responding to int stim cont STC 05/29/16 13:41 Calmer, cooperative, nml speech rate/vol, engaging, talkative but not pressured , baseline delusional thoughts, no evid of responding to internal stimuli, denied any si/hi or ah/vh. hoping for d/c next week early. i/j both impaired refused labs this AM. wanted to check basic chem since Trileptal can cause hypoNa+. Pt refuses to engage in discussion about this. taking meds as Rxd presently, but not when offered by RN at time ordered 0900, rather prefers later in AM when she wakes up more, up to 2-3 hours after scheduled time PLAN: Spoke with outpt Dr. Morel covering for Dr. Carreno today about targeted d/c early next week to [facility], and to consider asking pt to stipulate to c.o meds since she is taking them anyway, although does manipulate administration times and is refusing labs and routine vitals. Will change AM meds to noon, also VS to noon to support consistent compliance in the meantime. Cont on STC Cont meds as ordered. Objective: Vital Signs Temp Pulse Resp BP Pulse Ox 36.6 C 68 12 98/61 L 99 05/19/16 10:37 05/19/16 10:37 04/15/16 10:02 05/19/16 10:37 05/19/16 10:37 Medications Generic Name Dose Route Start Last Admin Trade Name Freq PRN Reason Stop Dose Admin Olanzapine 10 mg 04/15/16 09:23 05/21/16 18:54 Zyprexa Zydis PO 10/12/16 09:22 10 mg Q4H PRN Agitation, Psychosis Olanzapine 20 mg 05/22/16 21:00 05/28/16 20:40 Zyprexa Zydis PO 11/18/16 20:59 20 mg HS ANSON Oxcarbazepine 900 mg 04/15/16 21:00 05/28/16 20:39 Trileptal PO 10/12/16 20:59 900 mg HS ANSON Oxcarbazepine 600 mg 05/20/16 09:00 05/29/16 10:42 Trileptal PO 11/16/16 08:59 600 mg DAILY ANSON Nicotine Polacrilex 2 mg 04/15/16 09:23 05/23/16 16:49 Nicorette B 10/12/16 09:22 2 mg Q1HR PRN Nicotine withdrawal Lorazepam 0.5 - 1 mg 04/15/16 09:23 Ativan PO 10/12/16 09:22 Q6HRS PRN Anxiety, Able to Take PO - Time Spent With Patient Time Spent With Patient: 15min - Pending Discharge Pending Discharge Within 24 Hours: No Pending Discharge Within 48 Hours: No ICD10 Worksheet Patient Problems: Problems Problem Status Onset Bipolar disorder Acute Delusional disorder Acute Gravely disabled Acute Schizoaffective disorder Acute Acute psychosis Acute Altered mental status Acute Overdose Acute
[2016-05-29] MEDS: OLANZapine DISINTEGR 10 MG TAB PO SCH (19:59)
--- NOTE | 2016-05-30 11:25 | SOAPPROG ---
SOAP Progress Note Assessment/Plan: Assessment: 35yo CF with schizoaffective d/o admitted in manic state with delusions in context of recurrent med noncompliance, now taking po meds with more stabilized mood although seems still somewhat hypomanic, but continues with delusions. 05/28/16 14:46 Per staff, slept 10hr. Staff report recent concerns for internal stimuli, including talking to herself as if in conversation when no one around, and mumbling/muttering to herself at times. On interview, casually dressed, over-dressed with winter coat and hat on. some hirsutism noted on chin and upper lip. pt initially engaging, with nml speech rate/vol, good eye contact and talkative but not pressured. Reports she has figured out her family, and uses some profanities to describe each member, and continues to express some grandiose delusions. Did not appear responding to internal stimuli and voiced no si/hi. I/J both poor. Cognition seemed conversationally intact and patient was alert/oriented to place, time, person. Pt abruptly terminated interview after was asked to have labs checked before d/ c. "you're not my doctor". Denied any med s/e, states she has been taking meds as Rxd and plans to d/c to [facility] on 06/[address] Carreno [facility] psychiatrist yesterday, who felt she was improved. Pt refused offer to check labs before d/c, despite informed that Trileptal can cause hyponatremia. PLAN: continue current meds as ordered. will order basic Chem panel for tomorrow AM and encourage pt to comply cont to monitor for responding to int stim cont STC 05/29/16 13:41 Calmer, cooperative, nml speech rate/vol, engaging, talkative but not pressured , baseline delusional thoughts, no evid of responding to internal stimuli, denied any si/hi or ah/vh. hoping for d/c next week early. i/j both impaired refused labs this AM. wanted to check basic chem since Trileptal can cause hypoNa+. Pt refuses to engage in discussion about this. taking meds as Rxd presently, but not when offered by RN at time ordered 0900, rather prefers later in AM when she wakes up more, up to 2-3 hours after scheduled time PLAN: Spoke with outpt Dr. Morel covering for Dr. Carreno today about targeted d/c early next week to [facility], and to consider asking pt to stipulate to c.o meds since she is taking them anyway, although does manipulate administration times and is refusing labs and routine vitals. Will change AM meds to noon, also VS to noon to support consistent compliance in the meantime. Cont on STC Cont meds as ordered. 05/30/16 16:03 Per staff, slept well last night. No acute issues, although has been more irritable. Pt refused interview beyond denying any physical complaints or problems with medications. Was noted to be staring out window, and when no one in room was laughing out loud. Dismissive of any further conversation. PLAN: continue current meds. Has been compliant with meds but refuses labs or VS. Objective: Vital Signs Temp Pulse Resp BP Pulse Ox 36.6 C 68 12 98/61 L 99 05/19/16 10:37 05/19/16 10:37 04/15/16 10:02 05/19/16 10:37 05/19/16 10:37 - Time Spent With Patient Time Spent With Patient: <15min - Pending Discharge Pending Discharge Within 24 Hours: No Pending Discharge Within 48 Hours: No ICD10 Worksheet Patient Problems: Problems Problem Status Onset Bipolar disorder Acute Delusional disorder Acute Gravely disabled Acute Schizoaffective disorder Acute Acute psychosis Acute Altered mental status Acute Overdose Acute
[2016-05-30] MEDS ORDERED: OXcarbazepine 300 MG TAB PO SCH (12:00)
[2016-05-30] MEDS: OXcarbazepine 300 MG TAB PO SCH ×2 (12:36→20:01)
[2016-05-30] MEDS: OLANZapine DISINTEGR 10 MG TAB PO SCH (20:00)
[2016-05-31] MEDS: IBUPROFEN 600 MG TAB PO PRN (11:10)
[2016-05-31] MEDS: OXcarbazepine 300 MG TAB PO SCH ×2 (11:14→18:41)
--- NOTE | 2016-05-31 13:07 | SOAPPROG ---
SOAP Progress Note Assessment/Plan: Assessment: 35yo CF with schizoaffective d/o admitted in manic state with delusions in context of recurrent med noncompliance, now taking po meds with more stabilized mood although seems still somewhat hypomanic, but continues with delusions. 05/28/16 14:46 Per staff, slept 10hr. Staff report recent concerns for internal stimuli, including talking to herself as if in conversation when no one around, and mumbling/muttering to herself at times. On interview, casually dressed, over-dressed with winter coat and hat on. some hirsutism noted on chin and upper lip. pt initially engaging, with nml speech rate/vol, good eye contact and talkative but not pressured. Reports she has figured out her family, and uses some profanities to describe each member, and continues to express some grandiose delusions. Did not appear responding to internal stimuli and voiced no si/hi. I/J both poor. Cognition seemed conversationally intact and patient was alert/oriented to place, time, person. Pt abruptly terminated interview after was asked to have labs checked before d/ c. "you're not my doctor". Denied any med s/e, states she has been taking meds as Rxd and plans to d/c to [facility] on 06/[address] Carreno [facility] psychiatrist yesterday, who felt she was improved. Pt refused offer to check labs before d/c, despite informed that Trileptal can cause hyponatremia. PLAN: continue current meds as ordered. will order basic Chem panel for tomorrow AM and encourage pt to comply cont to monitor for responding to int stim cont STC 05/29/16 13:41 Calmer, cooperative, nml speech rate/vol, engaging, talkative but not pressured , baseline delusional thoughts, no evid of responding to internal stimuli, denied any si/hi or ah/vh. hoping for d/c next week early. i/j both impaired refused labs this AM. wanted to check basic chem since Trileptal can cause hypoNa+. Pt refuses to engage in discussion about this. taking meds as Rxd presently, but not when offered by RN at time ordered 0900, rather prefers later in AM when she wakes up more, up to 2-3 hours after scheduled time PLAN: Spoke with outpt Dr. Morel covering for Dr. Carreno today about targeted d/c early next week to [facility], and to consider asking pt to stipulate to c.o meds since she is taking them anyway, although does manipulate administration times and is refusing labs and routine vitals. Will change AM meds to noon, also VS to noon to support consistent compliance in the meantime. Cont on STC Cont meds as ordered. 05/30/16 16:03 Per staff, slept well last night. No acute issues, although has been more irritable. Pt refused interview beyond denying any physical complaints or problems with medications. Was noted to be staring out window, and when no one in room was laughing out loud. Dismissive of any further conversation. PLAN: continue current meds. Has been compliant with meds but refuses labs or VS. 05/31/16 16:07 Slept through night. More pleasant on interaction today per staff. MSE: wearing winter coat. nml eye contact and speech rate/vol. sarcastic and dismissive tone. controlled affect, mood "fine", thoughts linear on brief interaction as pt did not want any formal interview. states I am not her doctor and Dr. Trent did not order the labs so she will not agree to any. plans for d /c later this week. did not appear responding to int stim, and voiced no SI or thoughts to harm others. i/j impaired. cognition intact. PLAN: cont current meds. compliant with po meds, but refusing offer of labs or VS. see plan 05/29. Objective: Vital Signs Temp Pulse Resp BP Pulse Ox 36.6 C 68 12 98/61 L 99 05/19/16 10:37 05/19/16 10:37 04/15/16 10:02 05/19/16 10:37 05/19/16 10:37 - Time Spent With Patient Time Spent With Patient: 15min - Pending Discharge Pending Discharge Within 24 Hours: No Pending Discharge Within 48 Hours: No ICD10 Worksheet Patient Problems: Problems Problem Status Onset Bipolar disorder Acute Delusional disorder Acute Gravely disabled Acute Schizoaffective disorder Acute Acute psychosis Acute Altered mental status Acute Overdose Acute
[2016-05-31] MEDS ORDERED: IBUPROFEN 600 MG TAB PO ONE (15:00)
[2016-05-31] MEDS: OLANZapine DISINTEGR 10 MG TAB PO SCH (18:41)
[2016-06-01] MEDS: IBUPROFEN 600 MG TAB PO PRN (10:57)
[2016-06-01] MEDS: OXcarbazepine 300 MG TAB PO SCH ×2 (10:58→18:56)
[2016-06-01] MEDS: OLANZapine DISINTEGR 10 MG TAB PO SCH (18:57)
--- NOTE | 2016-06-01 19:19 | SOAPPROG ---
SOAP Progress Note Assessment/Plan: Assessment: Plan: 04/19/16 22:58 Remains manic and psychotic. Need COM if she is to stabilize.. 04/20/16 18:57 REmains manic. Needs additional PO meds. Will petition court. 04/21/16 17:34 Improving but history indicates she will not improve adequate to provide for safe d/c without PO meds. Will [facility], petition for involuntary meds. 04/23/16 07:59 Remains elevated, though coop. Will [facility]. 04/23/16 16:02 More irritable today. She continues to resist PO meds but is happy to accept IM. Will discuss with Dr. Goodwin the utility in seeking an order for PO meds as she is correct that we cannot give them to her against her will. Although Zyprexa is available in a long-acting injectable, I will not give it with Sustenna due to safety concerns. 04/24/16 22:30 CCM. 04/28/16 17:48 Pt remains psychotic. Sleeping well, less irritable, less pressured. Her current symptomology is consistent with the thought disorder component of her illness. Will [facility]. Continue d/c planning. Will put our support behind [facility]. 04/29/16 18:11 No interval change. [facility]. 04/30/16 15:56 Is approaching baseline. REmains delusional and likely unable to care for herself due to ongoing psychosis. Need d/c plan. 05/01/16 15:16 No interval change. Remains delusional. [facility]. Will investigate this friend. 05/04/16 14:19 Improved. Will [facility]. Continue d/c planning. I agree with plan for /[facility]. 05/05/16 17:24 Remains delusional and intermittently elevated. I believe she appropriate for [facility]. Await opinion from Dr. Carreno. 05/06/16 11:55 On a tangent today re: [facility]. Our previous information was that they had terminated services with her. Will [facility], monitor behaviors and disposition. 05/07/16 16:30 Remains tenuous. Unclear whether she would be able to conform her behaviors at [facility]. Will discuss with Dr. Carreno, [facility]. 05/08/16 12:45 Remains agitated, psychotic, elevated. Dr. Carreno wants her to take a mood stabilizer which I agree with. WIll proceed with COM petition. 05/11/16 14:39 Remains agitated, threatening at times, pressured and delusional. She has very little insight into illness and is clearly gravely disabled. Will [facility], petition for COM. 05/12/16 17:47 No interval change. Pt now taking PO meds. Will hold on COM. 05/13/16 12:50 Remains elevated, delusional. [facility]. Await reevaluation by Dr. Carreno. 05/14/16 14:52 No significant change. Day #4 of compliance with PO meds. [facility]. 05/17/16 10:17 Slow improvement with PO meds. [facility]. 05/25/16 14:49 Improved over last encounter. [facility]. 05/26/16 17:11 Continued overall improvement. Manic sx's are significantly better with increased Trileptal. [facility]. 05/27/16 18:59 REmains quite ill. Hope to see further progress with continued compliance. 06/01/16 19:19 Pt is likely appropriate for transfer to residential care. Mother is refusing to pay if she is not on COM. She is compliant with oral meds at this time and will be transferred on a ST which will serve every practical purpose of COM's. Will work with [facility]/Dr. Carreno to sort this out. Pt may transfer when accepted. Subjective: Pt seen, discussed with staff, chart reviewed. Remains elevated, intermittently agitated, though generally cooperative. Affect is expansive, elevated, irriitable. States she is either going to or the homeless alf today. Remains compliant with PO meds. Objective: Vital Signs Temp Pulse Resp BP Pulse Ox 36.6 C 68 12 98/61 L 99 05/19/16 10:37 05/19/16 10:37 04/15/16 10:02 05/19/16 10:37 05/19/16 10:37 MSE: Cooperative, though moderately agitated. Affect is expansive, irritable at times, redirectable. Mood is "great." TP tangential. TC reveals familiar delusional systems. No SI/HI/. - Time Spent With Patient Time Spent With Patient: 25" ICD10 Worksheet Patient Problems: Problems Problem Status Onset Bipolar disorder Acute Delusional disorder Acute Gravely disabled Acute Schizoaffective disorder Acute Acute psychosis Acute Altered mental status Acute Overdose Acute
[2016-06-02] MEDS: OXcarbazepine 300 MG TAB PO SCH ×2 (12:27→18:58)
[2016-06-02] MEDS: IBUPROFEN 600 MG TAB PO PRN (16:19)
--- NOTE | 2016-06-02 16:26 | SOAPPROG ---
SOAP Progress Note Assessment/Plan: Assessment: Plan: 04/19/16 22:58 Remains manic and psychotic. Need COM if she is to stabilize.. 04/20/16 18:57 REmains manic. Needs additional PO meds. Will petition court. 04/21/16 17:34 Improving but history indicates she will not improve adequate to provide for safe d/c without PO meds. Will [facility], petition for involuntary meds. 04/23/16 07:59 Remains elevated, though coop. Will [facility]. 04/23/16 16:02 More irritable today. She continues to resist PO meds but is happy to accept IM. Will discuss with Dr. Goodwin the utility in seeking an order for PO meds as she is correct that we cannot give them to her against her will. Although Zyprexa is available in a long-acting injectable, I will not give it with Sustenna due to safety concerns. 04/24/16 22:30 CCM. 04/28/16 17:48 Pt remains psychotic. Sleeping well, less irritable, less pressured. Her current symptomology is consistent with the thought disorder component of her illness. Will [facility]. Continue d/c planning. Will put our support behind [facility]. 04/29/16 18:11 No interval change. [facility]. 04/30/16 15:56 Is approaching baseline. REmains delusional and likely unable to care for herself due to ongoing psychosis. Need d/c plan. 05/01/16 15:16 No interval change. Remains delusional. [facility]. Will investigate this friend. 05/04/16 14:19 Improved. Will [facility]. Continue d/c planning. I agree with plan for /[facility]. 05/05/16 17:24 Remains delusional and intermittently elevated. I believe she appropriate for [facility]. Await opinion from Dr. Carreno. 05/06/16 11:55 On a tangent today re: [facility]. Our previous information was that they had terminated services with her. Will [facility], monitor behaviors and disposition. 05/07/16 16:30 Remains tenuous. Unclear whether she would be able to conform her behaviors at [facility]. Will discuss with Dr. Carreno, [facility]. 05/08/16 12:45 Remains agitated, psychotic, elevated. Dr. Carreno wants her to take a mood stabilizer which I agree with. WIll proceed with COM petition. 05/11/16 14:39 Remains agitated, threatening at times, pressured and delusional. She has very little insight into illness and is clearly gravely disabled. Will [facility], petition for COM. 05/12/16 17:47 No interval change. Pt now taking PO meds. Will hold on COM. 05/13/16 12:50 Remains elevated, delusional. [facility]. Await reevaluation by Dr. Carreno. 05/14/16 14:52 No significant change. Day #4 of compliance with PO meds. [facility]. 05/17/16 10:17 Slow improvement with PO meds. [facility]. 05/25/16 14:49 Improved over last encounter. [facility]. 05/26/16 17:11 Continued overall improvement. Manic sx's are significantly better with increased Trileptal. [facility]. 05/27/16 18:59 REmains quite ill. Hope to see further progress with continued compliance. 06/01/16 19:19 Pt is likely appropriate for transfer to residential care. Mother is refusing to pay if she is not on COM. She is compliant with oral meds at this time and will be transferred on a STC which will serve every practical purpose of COM's. Will work with CR/Dr. Carreno to sort this out. Pt may transfer when accepted. 06/02/16 16:25 Much improved overall. Will [facility], d/c to [facility] as soon as COM in place. Subjective: Pt seen, discussed with staff. Tolerated disappointment of not d/c'ing well. Angry with her mother for being too controlling. I reviewed with her the process of seeking involuntary medications and she states she will stipulate to the order if she can go to [facility] and participate in the CR program. We then made a conference call to her mother to ensure that she will pay for CR if pt agrees to COM. Pt states she is willing to do this. Objective: Vital Signs Temp Pulse Resp BP Pulse Ox 36.6 C 68 12 98/61 L 99 05/19/16 10:37 05/19/16 10:37 04/15/16 10:02 05/19/16 10:37 03/28/17 10:37 MSE: Calm, coop. Affect is euthymic, irritable at times, redirectible. Mood is "fine." TP linear at times, tangential at others. TC reveals ongoing delusions. No SI/HI/. - Time Spent With Patient Time Spent With Patient: 25" ICD10 Worksheet Patient Problems: Problems Problem Status Onset Bipolar disorder Acute Delusional disorder Acute Gravely disabled Acute Schizoaffective disorder Acute Acute psychosis Acute Altered mental status Acute Overdose Acute
[2016-06-02] MEDS: OLANZapine DISINTEGR 10 MG TAB PO SCH (18:58)
[2016-06-03] MEDS: IBUPROFEN 600 MG TAB PO PRN (11:15)
[2016-06-03] MEDS: OXcarbazepine 300 MG TAB PO SCH ×2 (12:15→19:05)
--- NOTE | 2016-06-03 15:27 | SOAPPROG ---
SOAP Progress Note Assessment/Plan: Assessment: Plan: 04/19/16 22:58 Remains manic and psychotic. Need COM if she is to stabilize.. 04/20/16 18:57 REmains manic. Needs additional PO meds. Will petition court. 04/21/16 17:34 Improving but history indicates she will not improve adequate to provide for safe d/c without PO meds. Will [facility], petition for involuntary meds. 04/23/16 07:59 Remains elevated, though coop. Will [facility]. 04/23/16 16:02 More irritable today. She continues to resist PO meds but is happy to accept IM. Will discuss with Dr. Goodwin the utility in seeking an order for PO meds as she is correct that we cannot give them to her against her will. Although Zyprexa is available in a long-acting injectable, I will not give it with Sustenna due to safety concerns. 04/24/16 22:30 CCM. 04/28/16 17:48 Pt remains psychotic. Sleeping well, less irritable, less pressured. Her current symptomology is consistent with the thought disorder component of her illness. Will [facility]. Continue d/c planning. Will put our support behind [facility]. 04/29/16 18:11 No interval change. [facility]. 04/30/16 15:56 Is approaching baseline. REmains delusional and likely unable to care for herself due to ongoing psychosis. Need d/c plan. 05/01/16 15:16 No interval change. Remains delusional. [facility]. Will investigate this friend. 05/04/16 14:19 Improved. Will [facility]. Continue d/c planning. I agree with plan for /[facility]. 05/05/16 17:24 Remains delusional and intermittently elevated. I believe she appropriate for [facility]. Await opinion from Dr. Carreno. 05/06/16 11:55 On a tangent today re: [facility]. Our previous information was that they had terminated services with her. Will [facility], monitor behaviors and disposition. 05/07/16 16:30 Remains tenuous. Unclear whether she would be able to conform her behaviors at [facility]. Will discuss with Dr. Carreno, [facility]. 05/08/16 12:45 Remains agitated, psychotic, elevated. Dr. Carreno wants her to take a mood stabilizer which I agree with. WIll proceed with COM petition. 05/11/16 14:39 Remains agitated, threatening at times, pressured and delusional. She has very little insight into illness and is clearly gravely disabled. Will [facility], petition for COM. 05/12/16 17:47 No interval change. Pt now taking PO meds. Will hold on COM. 05/13/16 12:50 Remains elevated, delusional. [facility]. Await reevaluation by Dr. Carreno. 05/14/16 14:52 No significant change. Day #4 of compliance with PO meds. [facility]. 05/17/16 10:17 Slow improvement with PO meds. [facility]. 05/25/16 14:49 Improved over last encounter. [facility]. 05/26/16 17:11 Continued overall improvement. Manic sx's are significantly better with increased Trileptal. [facility]. 05/27/16 18:59 REmains quite ill. Hope to see further progress with continued compliance. 06/01/16 19:19 Pt is likely appropriate for transfer to residential care. Mother is refusing to pay if she is not on COM. She is compliant with oral meds at this time and will be transferred on a ST which will serve every practical purpose of COM's. Will work with CR/Dr. Carreno to sort this out. Pt may transfer when accepted. 06/02/16 16:25 Much improved overall. Will [facility], d/c to [facility] as soon as COM in place. 06/03/16 15:30 Continued improvement. Calmer today. [facility]. Subjective: Pt seen, discussed with staff. Calmer today. Able to discuss plan for CR. Accepting of need to wait for COM. Remains compliant with meds though remains resistant to go to groups. Objective: Vital Signs Temp Pulse Resp BP Pulse Ox 36.6 C 68 12 98/61 L 99 05/19/16 10:37 05/19/16 10:37 04/15/16 10:02 05/19/16 10:37 05/19/16 10:37 MSE: Calmer, coop. Affect is expansive, though not labile. Mood is "good." TP linear at times. TC reveals less prominent delusions, no real paranoia today. Denies SI/HI/. - Time Spent With Patient Time Spent With Patient: 25" ICD10 Worksheet Patient Problems: Problems Problem Status Onset Bipolar disorder Acute Delusional disorder Acute Gravely disabled Acute Schizoaffective disorder Acute Acute psychosis Acute Altered mental status Acute Overdose Acute
[2016-06-03] MEDS: OLANZapine DISINTEGR 10 MG TAB PO SCH (19:04)
[2016-06-04] MEDS: OXcarbazepine 300 MG TAB PO SCH ×2 (13:33→19:19)
--- NOTE | 2016-06-04 19:11 | SOAPPROG ---
SOAP Progress Note Assessment/Plan: Assessment: Plan: 04/19/16 22:58 Remains manic and psychotic. Need COM if she is to stabilize.. 04/20/16 18:57 REmains manic. Needs additional PO meds. Will petition court. 04/21/16 17:34 Improving but history indicates she will not improve adequate to provide for safe d/c without PO meds. Will [facility], petition for involuntary meds. 04/23/16 07:59 Remains elevated, though coop. Will [facility]. 04/23/16 16:02 More irritable today. She continues to resist PO meds but is happy to accept IM. Will discuss with Dr. Goodwin the utility in seeking an order for PO meds as she is correct that we cannot give them to her against her will. Although Zyprexa is available in a long-acting injectable, I will not give it with Sustenna due to safety concerns. 04/24/16 22:30 CCM. 04/28/16 17:48 Pt remains psychotic. Sleeping well, less irritable, less pressured. Her current symptomology is consistent with the thought disorder component of her illness. Will [facility]. Continue d/c planning. Will put our support behind [facility]. 04/29/16 18:11 No interval change. [facility]. 04/30/16 15:56 Is approaching baseline. REmains delusional and likely unable to care for herself due to ongoing psychosis. Need d/c plan. 05/01/16 15:16 No interval change. Remains delusional. [facility]. Will investigate this friend. 05/04/16 14:19 Improved. Will [facility]. Continue d/c planning. I agree with plan for /[facility]. 05/05/16 17:24 Remains delusional and intermittently elevated. I believe she appropriate for [facility]. Await opinion from Dr. Carreno. 05/06/16 11:55 On a tangent today re: [facility]. Our previous information was that they had terminated services with her. Will [facility], monitor behaviors and disposition. 05/07/16 16:30 Remains tenuous. Unclear whether she would be able to conform her behaviors at [facility]. Will discuss with Dr. Carreno, [facility]. 05/08/16 12:45 Remains agitated, psychotic, elevated. Dr. Carreno wants her to take a mood stabilizer which I agree with. WIll proceed with COM petition. 05/11/16 14:39 Remains agitated, threatening at times, pressured and delusional. She has very little insight into illness and is clearly gravely disabled. Will [facility], petition for COM. 05/12/16 17:47 No interval change. Pt now taking PO meds. Will hold on COM. 05/13/16 12:50 Remains elevated, delusional. [facility]. Await reevaluation by Dr. Carreno. 05/14/16 14:52 No significant change. Day #4 of compliance with PO meds. [facility]. 05/17/16 10:17 Slow improvement with PO meds. [facility]. 05/25/16 14:49 Improved over last encounter. [facility]. 05/26/16 17:11 Continued overall improvement. Manic sx's are significantly better with increased Trileptal. [facility]. 05/27/16 18:59 REmains quite ill. Hope to see further progress with continued compliance. 06/01/16 19:19 Pt is likely appropriate for transfer to residential care. Mother is refusing to pay if she is not on COM. She is compliant with oral meds at this time and will be transferred on a ST which will serve every practical purpose of COM's. Will work with CR/Dr. Carreno to sort this out. Pt may transfer when accepted. 06/02/16 16:25 Much improved overall. Will [facility], d/c to [facility] as soon as COM in place. 06/03/16 15:30 Continued improvement. Calmer today. [facility]. 06/04/16 19:12 Angry today. Need to get her moved on before she regresses. [facility]. Subjective: Pt seen, discussed with staff. Hostile and angry with me due to lack of stipulation. Unaccepting of fact that we are all waiting on the courts and her criminal defense attorney. She continues to sleep well if not excessively. She remains compliant with PO meds. Objective: Vital Signs Temp Pulse Resp BP Pulse Ox 36.6 C 83 12 113/53 L 97 05/19/16 10:37 06/04/16 09:12 04/15/16 10:02 06/04/16 09:12 04/13/17 09:12 MSE: Hostile, angry, calls me a liar. Affect is o/w expansive, irritable. Mood is "mad." TP circumstantial, perseverative. TC reveals continued familiar delusional systems, though less prominent. - Time Spent With Patient Time Spent With Patient: 25" ICD10 Worksheet Patient Problems: Problems Problem Status Onset Bipolar disorder Acute Delusional disorder Acute Gravely disabled Acute Schizoaffective disorder Acute Acute psychosis Acute Altered mental status Acute Overdose Acute
[2016-06-04] MEDS: OLANZapine DISINTEGR 10 MG TAB PO SCH (19:18)
[2016-06-05] MEDS: OXcarbazepine 300 MG TAB PO SCH ×2 (12:07→18:59)
[2016-06-05 12:56] VITALS: BP 114/78; PULSE 89; O2SAT 99
--- NOTE | 2016-06-05 15:45 | CPEKG ---
Heart Rate: 77 RR Interval: 779 P-R Interval: 144 QRSD Interval: 88 QT Interval: 384 QTC Interval: 435 P [place]: 70 QRS [place]: 83 T Wave [place]: 56 EKG Severity - NORMAL ECG - EKG Impression: SINUS RHYTHM Electronically Signed By: Rafa Barton 05-Jun-2016 20:41:19
--- NOTE | 2016-06-05 18:38 | SOAPPROG ---
SOAP Progress Note Assessment/Plan: Assessment: Plan: 04/19/16 22:58 Remains manic and psychotic. Need COM if she is to stabilize.. 04/20/16 18:57 REmains manic. Needs additional PO meds. Will petition court. 04/21/16 17:34 Improving but history indicates she will not improve adequate to provide for safe d/c without PO meds. Will [facility], petition for involuntary meds. 04/23/16 07:59 Remains elevated, though coop. Will [facility]. 04/23/16 16:02 More irritable today. She continues to resist PO meds but is happy to accept IM. Will discuss with Dr. Goodwin the utility in seeking an order for PO meds as she is correct that we cannot give them to her against her will. Although Zyprexa is available in a long-acting injectable, I will not give it with Sustenna due to safety concerns. 04/24/16 22:30 CCM. 04/28/16 17:48 Pt remains psychotic. Sleeping well, less irritable, less pressured. Her current symptomology is consistent with the thought disorder component of her illness. Will [facility]. Continue d/c planning. Will put our support behind [facility]. 04/29/16 18:11 No interval change. [facility]. 04/30/16 15:56 Is approaching baseline. REmains delusional and likely unable to care for herself due to ongoing psychosis. Need d/c plan. 05/01/16 15:16 No interval change. Remains delusional. [facility]. Will investigate this friend. 05/04/16 14:19 Improved. Will [facility]. Continue d/c planning. I agree with plan for /[facility]. 05/05/16 17:24 Remains delusional and intermittently elevated. I believe she appropriate for [facility]. Await opinion from Dr. Carreno. 05/06/16 11:55 On a tangent today re: [facility]. Our previous information was that they had terminated services with her. Will [facility], monitor behaviors and disposition. 05/07/16 16:30 Remains tenuous. Unclear whether she would be able to conform her behaviors at [facility]. Will discuss with Dr. Carreno, [facility]. 05/08/16 12:45 Remains agitated, psychotic, elevated. Dr. Carreno wants her to take a mood stabilizer which I agree with. WIll proceed with COM petition. 05/11/16 14:39 Remains agitated, threatening at times, pressured and delusional. She has very little insight into illness and is clearly gravely disabled. Will [facility], petition for COM. 05/12/16 17:47 No interval change. Pt now taking PO meds. Will hold on COM. 05/13/16 12:50 Remains elevated, delusional. [facility]. Await reevaluation by Dr. Carreno. 05/14/16 14:52 No significant change. Day #4 of compliance with PO meds. [facility]. 05/17/16 10:17 Slow improvement with PO meds. [facility]. 05/25/16 14:49 Improved over last encounter. [facility]. 05/26/16 17:11 Continued overall improvement. Manic sx's are significantly better with increased Trileptal. [facility]. 05/27/16 18:59 REmains quite ill. Hope to see further progress with continued compliance. 06/01/16 19:19 Pt is likely appropriate for transfer to residential care. Mother is refusing to pay if she is not on COM. She is compliant with oral meds at this time and will be transferred on a STC which will serve every practical purpose of COM's. Will work with CR/Dr. Carreno to sort this out. Pt may transfer when accepted. 06/02/16 16:25 Much improved overall. Will [facility], d/c to [facility] as soon as COM in place. 06/03/16 15:30 Continued improvement. Calmer today. [facility]. 06/04/16 19:12 Angry today. Need to get her moved on before she regresses. [facility]. 06/05/16 18:38 No reall change. Pressured and delusional but redirectable. [facility]. Continue to await stipulation. Subjective: Pt seen, discussed with staff. Intrusive and inappropriate at first, demanding to be seen while I was talking to another pt. She accepted redirection on this and was pleasant and appropriate afterwards. Remains - appropriately - frustrated about delay in dispo. I got an email today that stated the superior court judge inadvertently sent the petition to the wrong privacy attorney. She resent it this morning. Objective: Vital Signs Temp Pulse Resp BP Pulse Ox 36.6 C 89 12 114/78 99 05/19/16 10:37 06/05/16 12:55 04/15/16 10:02 06/05/16 12:55 06/05/16 12:55 MSE: Moderately agitated, hostile at first, able to calm. Affect is expansive , elevated at times. Mood is "mad and happy." TP tangential. TC reveals prominent erotomanic delusions of being to a 6'6" police sergeant; grandiose delusions of being a "top copy director. What they call a pig copy director. 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
[2016-06-05] MEDS: OLANZapine DISINTEGR 10 MG TAB PO SCH (18:59)
[2016-06-06] MEDS: OXcarbazepine 300 MG TAB PO SCH ×3 (11:18→22:55)
--- NOTE | 2016-06-06 15:56 | SOAPPROG ---
SOAP Progress Note Assessment/Plan: Assessment: Plan: 04/19/16 22:58 Remains manic and psychotic. Need COM if she is to stabilize.. 04/20/16 18:57 REmains manic. Needs additional PO meds. Will petition court. 04/21/16 17:34 Improving but history indicates she will not improve adequate to provide for safe d/c without PO meds. Will [facility], petition for involuntary meds. 04/23/16 07:59 Remains elevated, though coop. Will [facility]. 04/23/16 16:02 More irritable today. She continues to resist PO meds but is happy to accept IM. Will discuss with Dr. Goodwin the utility in seeking an order for PO meds as she is correct that we cannot give them to her against her will. Although Zyprexa is available in a long-acting injectable, I will not give it with Sustenna due to safety concerns. 04/24/16 22:30 CCM. 04/28/16 17:48 Pt remains psychotic. Sleeping well, less irritable, less pressured. Her current symptomology is consistent with the thought disorder component of her illness. Will [facility]. Continue d/c planning. Will put our support behind [facility]. 04/29/16 18:11 No interval change. [facility]. 04/30/16 15:56 Is approaching baseline. REmains delusional and likely unable to care for herself due to ongoing psychosis. Need d/c plan. 05/01/16 15:16 No interval change. Remains delusional. [facility]. Will investigate this friend. 05/04/16 14:19 Improved. Will [facility]. Continue d/c planning. I agree with plan for /[facility]. 05/05/16 17:24 Remains delusional and intermittently elevated. I believe she appropriate for [facility]. Await opinion from Dr. Carreno. 05/06/16 11:55 On a tangent today re: [facility]. Our previous information was that they had terminated services with her. Will [facility], monitor behaviors and disposition. 05/07/16 16:30 Remains tenuous. Unclear whether she would be able to conform her behaviors at [facility]. Will discuss with Dr. Carreno, [facility]. 05/08/16 12:45 Remains agitated, psychotic, elevated. Dr. Carreno wants her to take a mood stabilizer which I agree with. WIll proceed with COM petition. 05/11/16 14:39 Remains agitated, threatening at times, pressured and delusional. She has very little insight into illness and is clearly gravely disabled. Will [facility], petition for COM. 05/12/16 17:47 No interval change. Pt now taking PO meds. Will hold on COM. 05/13/16 12:50 Remains elevated, delusional. [facility]. Await reevaluation by Dr. Carreno. 05/14/16 14:52 No significant change. Day #4 of compliance with PO meds. [facility]. 05/17/16 10:17 Slow improvement with PO meds. [facility]. 05/25/16 14:49 Improved over last encounter. [facility]. 05/26/16 17:11 Continued overall improvement. Manic sx's are significantly better with increased Trileptal. [facility]. 05/27/16 18:59 REmains quite ill. Hope to see further progress with continued compliance. 06/01/16 19:19 Pt is likely appropriate for transfer to residential care. Mother is refusing to pay if she is not on COM. She is compliant with oral meds at this time and will be transferred on a ST which will serve every practical purpose of COM's. Will work with CR/Dr. Carrneo to sort this out. Pt may transfer when accepted. 06/02/16 16:25 Much improved overall. Will [facility], d/c to [facility] as soon as COM in place. 06/03/16 15:30 Continued improvement. Calmer today. [facility]. 06/04/16 19:12 Angry today. Need to get her moved on before she regresses. [facility]. 06/05/16 18:38 No reall change. Pressured and delusional but redirectable. [facility]. Continue to await stipulation. 06/06/16 15:56 No interval change. [facility]. Subjective: Pt seen, discussed with staff. Reports feeling "very angry and betrayed" that she has not been d/c'd yet. 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 Stipulation was signed and registered with court. Dr. Wai states he will accept her on Wednesday. Objective: Vital Signs Temp Pulse Resp BP Pulse Ox 36.6 C 89 12 114/78 99 05/19/16 10:37 06/05/16 12:55 04/15/16 10:02 06/05/16 12:55 06/05/16 12:55 MSE: Agitated, angry. Affect is o/w labile, irritalbe. Mood is "bad." TP tangentail. TC reveals familiar delusional themes. - Time Spent With Patient Time Spent With Patient: 25" - Pending Discharge Pending Discharge Within 24 Hours: No ICD10 Worksheet Patient Problems: Problems Problem Status Onset Bipolar disorder Acute Delusional disorder Acute Gravely disabled Acute Schizoaffective disorder Acute Acute psychosis Acute Altered mental status Acute Overdose Acute
[2016-06-06] MEDS: OLANZapine DISINTEGR 10 MG TAB PO SCH ×2 (19:34→22:55)
[2016-06-07] MEDS: OXcarbazepine 300 MG TAB PO SCH ×3 (07:39→18:55)
[2016-06-07] MEDS: OLANZapine DISINTEGR 10 MG TAB PO PRN (07:40)
[2016-06-07] MEDS: NICOTINE POLACRILEX 2 MG GUM B PRN ×3 (13:09→17:00)
[2016-06-07] MEDS: OLANZapine DISINTEGR 10 MG TAB PO SCH (18:55)
--- NOTE | 2016-06-07 19:51 | SOAPPROG ---
SOAP Progress Note Assessment/Plan: Assessment: Plan: 04/19/16 22:58 Remains manic and psychotic. Need COM if she is to stabilize.. 04/20/16 18:57 REmains manic. Needs additional PO meds. Will petition court. 04/21/16 17:34 Improving but history indicates she will not improve adequate to provide for safe d/c without PO meds. Will [facility], petition for involuntary meds. 04/23/16 07:59 Remains elevated, though coop. Will [facility]. 04/23/16 16:02 More irritable today. She continues to resist PO meds but is happy to accept IM. Will discuss with Dr. Goodwin the utility in seeking an order for PO meds as she is correct that we cannot give them to her against her will. Although Zyprexa is available in a long-acting injectable, I will not give it with Sustenna due to safety concerns. 04/24/16 22:30 CCM. 04/28/16 17:48 Pt remains psychotic. Sleeping well, less irritable, less pressured. Her current symptomology is consistent with the thought disorder component of her illness. Will [facility]. Continue d/c planning. Will put our support behind [facility]. 04/29/16 18:11 No interval change. [facility]. 04/30/16 15:56 Is approaching baseline. REmains delusional and likely unable to care for herself due to ongoing psychosis. Need d/c plan. 05/01/16 15:16 No interval change. Remains delusional. [facility]. Will investigate this friend. 05/04/16 14:19 Improved. Will [facility]. Continue d/c planning. I agree with plan for /[facility]. 05/05/16 17:24 Remains delusional and intermittently elevated. I believe she appropriate for [facility]. Await opinion from Dr. Carreno. 05/06/16 11:55 On a tangent today re: [facility]. Our previous information was that they had terminated services with her. Will [facility], monitor behaviors and disposition. 05/07/16 16:30 Remains tenuous. Unclear whether she would be able to conform her behaviors at [facility]. Will discuss with Dr. Carreno, [facility]. 05/08/16 12:45 Remains agitated, psychotic, elevated. Dr. Carreno wants her to take a mood stabilizer which I agree with. WIll proceed with COM petition. 05/11/16 14:39 Remains agitated, threatening at times, pressured and delusional. She has very little insight into illness and is clearly gravely disabled. Will [facility], petition for COM. 05/12/16 17:47 No interval change. Pt now taking PO meds. Will hold on COM. 05/13/16 12:50 Remains elevated, delusional. [facility]. Await reevaluation by Dr. Carreno. 05/14/16 14:52 No significant change. Day #4 of compliance with PO meds. [facility]. 05/17/16 10:17 Slow improvement with PO meds. [facility]. 05/25/16 14:49 Improved over last encounter. [facility]. 05/26/16 17:11 Continued overall improvement. Manic sx's are significantly better with increased Trileptal. [facility]. 05/27/16 18:59 REmains quite ill. Hope to see further progress with continued compliance. 06/01/16 19:19 Pt is likely appropriate for transfer to residential care. Mother is refusing to pay if she is not on COM. She is compliant with oral meds at this time and will be transferred on a ST which will serve every practical purpose of COM's. Will work with [facility]/Dr. Carreno to sort this out. Pt may transfer when accepted. 06/02/16 16:25 Much improved overall. Will [facility], d/c to [facility] as soon as COM in place. 06/03/16 15:30 Continued improvement. Calmer today. [facility]. 06/04/16 19:12 Angry today. Need to get her moved on before she regresses. [facility]. 06/05/16 18:38 No reall change. Pressured and delusional but redirectable. [facility]. Continue to await stipulation. 06/06/16 15:56 No interval change. [facility]. 06/07/16 19:54 Remains expansive, delusional though at baseline. [facility]. Anticipate d/c tomorrow to . Subjective: Pt seen, discussed with staff. Reports feeling "so happy" today. She announces that she is "expecting" though doesn't plan to have the baby for three years so she can complete [employer]. Upbeat and pleasant. Much less irritable. Objective: Vital Signs Temp Pulse Resp BP Pulse Ox 36.6 C 89 12 114/78 99 05/19/16 10:37 06/05/16 12:55 04/15/16 10:02 06/05/16 12:55 06/05/16 12:55 MSE: Calmer today, interactive. Affect is expansive, less irritable. Mood is "great." TP tangential. TC reveals familiar delusional systems. No SI. - Time Spent With Patient Time Spent With Patient: 25" - Pending Discharge Pending Discharge Within 24 Hours: Yes Pending Discharge Date: 06/08/16 Pending Discharge Time: 11:00 ICD10 Worksheet Patient Problems: Problems Problem Status Onset Bipolar disorder Acute Delusional disorder Acute Gravely disabled Acute Schizoaffective disorder Acute Acute psychosis Acute Altered mental status Acute Overdose Acute
[2016-06-08] MEDS: OXcarbazepine 300 MG TAB PO SCH (11:22)
[2016-06-08] MEDS ORDERED: PALIPERIDONE PALMITATE 234 MG/1.5 ML SYR IM ONE (11:24)
[2016-06-08] MEDS: NICOTINE POLACRILEX 2 MG GUM B PRN (13:10)
--- NOTE | 2016-06-10 14:33 | BDS ---
[f rep st] BEHAVIORAL HEALTH DISCHARGE SUMMARY REASON FOR ADMISSION: The patient is a 36-year-old female with a history of schizoaffecti ve disorder, bipolar type. She has had numerous previous admissions with us and these typically are due to agitated and aggressive behavior in the community and noncompliance with her psychotropic me dicines causing a manic and psychotic relapse. This was the case on this admission and she was brought in for evaluation by her mother due to meryin g been noncompliant with her psychiatrist and therapist at the [facility] where she gets her psychiatric treatment. She also had missed apparently an Invega Sustenna injection. She was e xtremely agitated, manic and delusional and was admitted for further evaluation and treatment. Full description of the events preceding admission can be found in her admission history dated 04/15. ADMITTING DIAGNOSES: 1. Schizoaffective disorder, bipolar type. Chronic with acute exacerbation. 2. Acute decompensation secondary to noncompliance with medications. ADMITTING PHYSICAL EXAMINATION: Performed by Dr. Regis Ham shows no acute physical findings. ADMISSION LABORATORY: CBC shows a white count of 9.91 and a neutrophil percentage elevated at 77. Admitting labs showed no significant abnormalities. Beta HCG is negative. Urine drug screen is neg ative for all substances. HOSPITAL COURSE: Patient was admitted to the [facility] inpatient unit on an M1 hold. She was agitated, laughing loudly and then screaming loudly. She was labile, laughing at 1 moment , angry at the next. She tended to target certain staff members and other patients. She was displa ana her usual delusional systems including believing that she was what she describes as a "copy chief" and that she was and she was to a chief client officer in [place] and that she was going to b e the next President and that she was in 4 different graduate programs at [employer]. She would erupt whenever her mother's name was mentioned or whenever she communicated with her michellee r and she actually had to be on phone restriction at least twice during her stay due to extremely an gry phone calls with her mother in which she would accuse her of trying to kill her and being jealou s of her because she was prettier than she is. The patient was refusing medications per her usual behaviors initially. She was very agreeable to g etting the Invega Sustenna shot, which she received shortly after arriving at 234 mg. She tolerated this well and actually had several of them, 3 in total prior to discharge. She states that she fel t like that was a helpful medicine and that she did not want to miss it. She would not however rest art her other medications including Zyprexa and Trileptal that she was scheduled to take at bedtime. For this reason, we ultimately sought a court order which she stipulated to just prior to discharg e. At that time, she actually had been compliant for about 2 weeks with the oral medicines and had calmed significantly. The patient's hospital course was protracted due to the severity of her illness and her familiar lac k of responsiveness to antipsychotic medications. Because of this, we were employing 2 different ag ents as had been successful in the past with the Zyprexa and the Invega. The Trileptal was increase d to a total of 1500 mg per day and actually seen to add significant benefit in decreasing her protr acted jeanne. Despite her level of agitation she never displayed any aggressive behaviors during her stay. The patient was evaluated by Dr. Carreno from [facility] who felt that she would be a reason able client to take to the [facility] and she was ultimately discharged to that situation. The pa libra was ambivalent about going, stating that she knows that she needs a place to be and needs to b e in a therapeutic environment though, then falling off into her delusional system stating that she is getting to the police artist in July and that she has to move to [place] or move to [place] At the time of discharge she was verbally landy to stay at the [facility] and participate ac tively in their programs. Condition at discharge was much improved. Her affect was no longer labile or elevated. She was als o much less irritable and less pressured. She remained erratic and odd and her delusional systems r emained prominent, though not as prominent as when she was admitted. DISCHARGE MEDICATIONS: 1. Invega Sustenna 234 mg IM daily was given on the day of discharge. 2. Trileptal 1500 mg daily. 3. Zyprexa 20 mg daily. DISCHARGE DIAGNOSES: 1. Schizoaffective disorder, bipolar type, chronic with acute exacerbation. 2. Family conflicts. 3. Chronic illness. DISPOSITION: Patient left with the [facility] staff to go to [facility]. Followup is with Dr. Carreno at [facility]. LEGAL COURSE: The patient was placed on a short-term certification, with expiration of M1 hold. Sh ort-term certification was transferred to [facility] at the time of her discharge along with the c ourt ordered medication order. /[id number]
== END 2016-06-08 13:30 | DRG 885 ==
LOC: EDUNIT# → BBEH 04-15 09:05
PROVIDERS: ADMIT Psychiatry & Neurology Psychiatry; ATTEND Psychiatry & Neurology Psychiatry
DX: F25.0 Schizoaffective disorder, bipolar type (principal); T43.506A Underdosing of unspecified antipsychotics and neuroleptics, initial encounter; F17.200 Nicotine dependence, unspecified, uncomplicated
CPT/HCPCS: 80183-90; 80305; G0480; J2060; J2426